=== PATIENT | female | born 1975 | race Two or more races ===

== ENCOUNTER 2021-07-31 12:11 | Emergency (ER) | payer MEDICAID, SELFPAY ==
--- NOTE | 2021-07-31 | ECG_ITS ---
Test Reason : palpitations Blood Pressure : / mmHG Vent. Rate : 066 BPM Atrial Rate : 066 BPM P-R Int : 168 ms QRS Dur : 086 ms QT Int : 408 ms P-R-T Axes : 020 011 008 degrees QTc Int : 427 ms Normal sinus rhythm Normal ECG No previous ECGs available Referred By: Generic ED Physician Electronically Signed By:LISA DESOUZA MD
--- NOTE | ~2021-07-31 | XR_ITS ---
EXAMINATION: XR CHEST CLINICAL INFORMATION: Palpitations COMPARISON: Chest radiographs 09/07/2019, 01/24/2018 TECHNIQUE: Portable upright AP view of the chest was obtained. FINDINGS: The lungs are clear. There is no airspace consolidation, vascular congestion, pneumothorax, or effusion. The vascularity is normal. The heart is normal in size. The hilar and mediastinal contours are normal. There is dextrocurvature thoracic spine similar to prior exam 2019. There is artifact overlying the supraclavicular soft tissues likely clothing artifact. XR/XR chest 1V IMPRESSION: Unremarkable examination.
[2021-07-31 12:26] VITALS: BP 117/79; PULSE 69; RESP 18; TEMP 36.9; O2SAT 100; BMI 38.9
--- NOTE | 2021-07-31 13:08 | ED_ITS ---
HPI - Arrhythmia/Palpitations General Chief Complaint: Arrhythmia/Palpitations Stated Complaint: rapid heartbeat Time Seen by Provider: 07/31/21 12:54 Source: patient Mode of arrival: ambulatory Limitations: no limitations History of Present Illness HPI narrative: Patient comes emergency room complaining palpitations. Patient states that she drank a large coffee with a lot of sugar in it, then she started having palpitations. Patient states that she has history of panic attacks and before she had worsening anxiety due to the palpitations she decided to come to the emergency room. This time, she is not tachycardic, has no palpitations and has no anxiety. Related Data Allergies Allergy/AdvReac Type Severity Reaction Status Date / Time ketorolac [From TORADOL] Allergy Mild ITCHING Unverified 07/04/20 19:02 Review of Systems Review of Systems: Constitutional : No Weight loss, No Fever, No Chills, No Night Sweats, No Fatigue, No Malaise ENT/Mouth : No Hearing loss, No Ear Pain, No Nasal Congestion, No Sinus Pain, No Hoarseness, No sore throat, No Rhinorrhea, No Swallowing Difficulty Eyes: No Eye Pain, No Swelling, No Redness, No Foreign Body, No Discharge, No Vision Changes Cardiovascular : No Chest Pain, No SOB, No Dyspnea on Exertion, No Orthopnea, No Edema, complaining of Palpitations that self-resolved Respiratory : No Cough, No Sputum, No Wheezing, No Smoke Exposure, No Dyspnea Gastrointestinal : No Nausea, No Vomiting, No Diarrhea, No Constipation, No abdominal Pain, No Hematochezia, No Melena Genitourinary : no irregular bleeding, No Dysuria, No Urinary Frequency, No Hematuria, No Urinary Incontinence, No Urgency, No Flank Pain, No Urinary Flow Changes, No Hesitancy Musculoskeletal : No joint pain, No Myalgias, No Joint Swelling Skin : No Skin Lesions, No rash Neuro : No Weakness, No Numbness, No Paresthesias, No Loss of Consciousness, No Dizziness, No Headache Psych : Complaining of Anxiety/Panic, No Depression, No SI/HI/AH/VH, No Social Issues, Heme/Lymph: No Bruising, No Bleeding,No Lymphadenopathy Endocrine : No Polyuria, No Polydipsia, No Temperature Intolerance [facility] Social History Social History Alcohol intake: unknown Patient Tobacco Use Status: Tobacco use Unknown Use of substances other than those prescribed or required for medical reasons: No Advance Directives: No Advance Directives Information Provided: Yes Physical Exam Vital Signs: Vital Signs: Last Vital Signs Temp 98.4 F 07/31/21 12:26 Pulse 64 07/31/21 14:03 Resp 15 07/31/21 14:03 BP 110/70 07/31/21 14:03 Pulse Ox 99 07/31/21 14:03 Body Mass Index 38.9 Const: Other: Appearance: Alert. Oriented X3. No acute distress. Eyes: Pupils equal, round and reactive to light. ENT: Pharynx normal. Neck: Normal inspection. Neck supple. No lymph nodes noted. No crepitus CVS: Normal heart rate and rhythm. Pulses normal. Normal S1 and S2 Respiratory: No respiratory distress. Breath sounds normal. No Wheezing. No rales Abdomen: Soft and nontender. No rigidity. No distention. good BS x4 Skin: Skin warm and dry. Normal skin color. Normal skin turgor. Extremities: No lower extremity edema. No Lacerations. No Rash Neuro: Oriented X 3. No motor deficit. No sensory deficit. Moving all extermities. No slurred speech. Course Course Course Narrative: Patient's palpitations likely secondary to caffeine/anxiety Patient remains asymptomatic MDM - Arrhythmia/Palpitations Lab Data Result diagrams: 07/31/21 13:04 07/31/21 13:42 Labs: Lab Results 07/31/21 07/31/21 07/31/21 Range/Units 13:04 13:05 13:42 WBC 3.7 L (4.8-10.8) X10*3/uL RBC 4.37 (4.20-5.50) X10*6/uL Hgb 13.4 (12.0-16.0) g/dl Hct 40.0 (37-47) % MCV 91.5 (80-98) fL MCH 30.7 (27.0-33.0) pg MCHC 33.5 (31.0-35.0) g/dl RDW 11.8 (11.0-16.0) % Plt Count 314 (160-400) X10*3/uL MPV 10.4 (9.4-12.3) fL Immature Gran % (Auto) 0.3 (0.0-0.4) % Neut % (Auto) 42.0 L (45-73) % Lymph % (Auto) 46.1 H (20-40) % [place] % (Auto) 9.2 (2-11) % Eos % (Auto) 1.6 (0-4) % Baso % (Auto) 0.8 (0-2) % Lymph # (Auto) 1.7 (1.2-4.9) X10*3/uL [place] # (Auto) 0.3 (0.1-1.2) X10*3/uL Eos # (Auto) 0.1 (0.0-0.4) X10*3/uL Baso # (Auto) 0.0 (0.0-0.2) X10*3/uL Abs Immat Gran (auto) 0.01 (0.00-0.03) X10*3/uL Absolute Neuts (auto) 1.6 L (2.0-8.3) X10*3/uL Absolute Nucleated RBC 0.000 (0.0-0.012) X10*3/uL Nucleated RBC % (auto) 0.0 (0.0-0.2) /100WBC Sodium 138 (135-145) mmol/L Potassium 4.7 (3.3-5.1) mmol/L Chloride 106 (96-108) mmol/L Carbon Dioxide 28 (22-29) mmol/L Anion Gap 9 L (12-20) BUN 8 L (9-16) mg/dL Creatinine 0.83 (0.5-1.4) mg/dL Estim Creat Clear Calc 92.8 Estimated GFR > 60 Random Glucose 93 (60-115) mg/dL Calcium 9.4 (8.4-10.2) mg/dL Troponin I High Sens < 3.5 (<3.5-17.0) ng/L ECG Data Attestation: I personally reviewed and interpreted this ECG as follows: (Rate 66, no ST segment depression or elevation, nonspecific T-wave inversion in lead 3, QTC 427) Discharge Plan Discharge Clinical Impression: Palpitations, Anxiety Patient Disposition: Home, Self-Care Instructions: Heart Palpitations (ED) Additional Instructions: Please follow-up with your primary care physician tomorrow. If you have any worsening or new symptoms, please return to the emergency room or call 911
[2021-07-31 13:11] LABS: MANUAL DIFF FLAG NO
[2021-07-31 13:12] LABS: Basophils Percent Auto 0.8 % (0-2); Eosinophils Absolute Auto 0.1 X10*3/uL (0.0-0.4); Eosinophils Percent Auto 1.6 % (0-4); Hemoglobin 13.4 g/dl (12.0-16.0); Imm Gran Abs Auto 0.01 X10*3/uL (0.00-0.03); Imm Gran Pct Auto 0.3 % (0.0-0.4); Lymphocytes Absolute Auto 1.7 X10*3/uL (1.2-4.9); Lymphocytes Percent Auto 46.1 % (20-40); Mean Corpuscular HGB Conc 33.5 g/dl (31.0-35.0); Mean Corpuscular Hemoglobin 30.7 pg (27.0-33.0); Mean Corpuscular Volume 91.5 fL (80-98); Mean Platelet Volume 10.4 fL (9.4-12.3); Monocytes Absolute Auto 0.3 X10*3/uL (0.1-1.2); Monocytes Percent Auto 9.2 % (2-11); Neutrophils Absolute Auto 1.6 X10*3/uL (2.0-8.3); Platelet Count 314 X10*3/uL (160-400); Red Blood Count 4.37 X10*6/uL (4.20-5.50); Red Cell Distribution Width 11.8 % (11.0-16.0); White Blood Count 3.7 X10*3/uL (4.8-10.8)
[2021-07-31 13:27] VITALS: PULSE 64
[2021-07-31 13:32] LABS: Troponin-I High Sensitivity < 3.5 ng/L (<3.5-17.0)
[2021-07-31 14:03] VITALS: BP 110/70; PULSE 64; RESP 15; O2SAT 99
[2021-07-31 14:15] LABS: Anion Gap 9 (12-20); Blood Urea Nitrogen 8 mg/dL (9-16); Calcium 9.4 mg/dL (8.4-10.2); Carbon Dioxide 28 mmol/L (22-29); Chloride 106 mmol/L (96-108); Creatinine Clr Calc Pharmacy 92.8; Estimated Glomerular Filt Rate > 60; Glucose Random 93 mg/dL (60-115); Potassium 4.7 mmol/L (3.3-5.1); Sodium 138 mmol/L (135-145)
== END 2021-07-31 15:08 | disposition home or self-care (01) ==
PROVIDERS: Emergency Provider Emergency Medicine; PCP Internal Medicine
DX: R00.2 Palpitations (principal); F41.9 Anxiety disorder, unspecified
CPT/HCPCS: 36415; 71045; 80048; 84484; 85025; 93005; 96361; 96374; 99284; 99285

== ENCOUNTER 2021-09-25 02:31 | Emergency (ER) | payer MEDICAID, SELFPAY ==
[2021-09-25 02:33] VITALS: BP 126/72; PULSE 69; RESP 16; TEMP 36.6; O2SAT 97; BMI 33.3
--- NOTE | 2021-09-25 02:56 | ED.GENADULT ---
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 Patient denies any lifting or traumatic injury that preceded the symptoms, but states that she is now having discomfort at the anterior chest wall at the same dermatomal level. She denies any associated cough, sore throat, shortness of breath, chest pain/palpitations, GI symptoms, urinary pain/burning/frequency. Related Data Previous Rx's Medication Instructions Recorded cyclobenzaprine 5 mg tablet 5 mg PO BEDTIME PRN #4 tab 09/25/21 Allergies Allergy/AdvReac Type Severity Reaction Status Date / Time ketorolac [From TORADOL] Allergy Mild ITCHING Unverified 07/04/20 19:02 Review of Systems Review of Systems: Pertinent positives and negatives as stated in HPI 10 point review of systems is otherwise negative. [facility] Past Medical History Source: nursing notes reviewed Social History Social History Alcohol intake: unknown Patient Tobacco Use Status: Tobacco use Unknown Advance Directives: No Advance Directives Information Provided: Yes Physical Exam Vital Signs: Vital Signs: Last Vital Signs Temp 97.8 F 09/25/21 02:33 Pulse 69 09/25/21 02:33 Resp 16 09/25/21 02:33 BP 126/72 09/25/21 02:33 Pulse Ox 97 09/25/21 02:33 BMI result Body Mass Index 33.3 VITAL SIGNS: Reviewed. GENERAL: Well developed, well nourished, in no acute distress. HEAD: Normocephalic/atraumatic EYES: PERRLA, EOMI OROPHARYNX: no oral lesions noted, posterior pharynx clear LUNGS: Normal breath sounds. No adventitious sounds or accessory muscle use. SpO2<97> CARDIOVASCULAR: Regular rate and rhythm without noted murmur ABDOMEN: Soft, non-tender, non-distended with bowel sounds, no CVA tenderness BACK: There is no midline vertebral tenderness, however there is some left paraspinal tenderness on palpation at the approximate T11/T12 level NEUROLOGIC: Alert and oriented x 4. Strength and sensation to light touch were grossly intact x 4. Course Course Course Narrative: 46-year-old female with history and clinical presentation with low clinical suspicion for any cardiopulmonary etiology, no infectious etiology suspected and findings most consistent with acute on chronic musculoskeletal pain. Patient will receive combination analgesics, UA, chest x-ray. Patient is status post cholecystectomy. On re-evaluation patient is noted to be resting comfortably and on questioning has had significant improvement of her pain and is requesting to go home. She was provided with a regimen and instructed to follow up with the primary care provider. Discharge Plan Discharge Clinical Impression: Back pain, Muscle spasm Patient Disposition: Home, Self-Care Instructions: Back Pain (ED), Muscle Spasm (ED) Additional Instructions: 1. Tylenol 1000 mg, por v?a oral, cada 6 horas seg?n sea necesario para controlar el dolor. No exceda los 4000 mg en 24 horas. 2. Parche de lidoca?na, est? disponible sin receta y debe aplicarse en el ?alanna de m?xima sensibilidad rosy se indica en el empaque exterior. 3. Tera un seguimiento con grant proveedor de atenci?n primaria los pr?ximos 2 a 3 d?as para grover reevaluaci?n. Regrese a la paula de emergencias si los s?ntomas empeoran. Prescriptions: New cyclobenzaprine 5 mg tablet 5 mg PO BEDTIME PRN (Reason: muscle spasm) Qty: 4 RF: 0 Referrals: [facility] [Primary Care Provider] - 2 days Print Language: Danish
[2021-09-25] MEDS: Lidocaine 4 % Patch ADH..PATCH 1 PATCH TRANSDERMA (03:40)
[2021-09-25] MEDS: Cyclobenzaprine HCl 5 MG TABLET PO (03:40)
[2021-09-25] MEDS: Acetaminophen 325 MG TABLET 975 MG PO (03:40)
== END 2021-09-25 05:12 | disposition home or self-care (01) ==
PROVIDERS: Emergency Provider Student in an Organized Health Care Education/Training Program
DX: M54.6 Pain in thoracic spine (principal); M62.830 Muscle spasm of back
CPT/HCPCS: 99283

== ENCOUNTER 2022-04-28 09:53 | Emergency (ER) | payer OTHER, MEDICAID, SELFPAY ==
[2022-04-28 09:56] VITALS: BP 121/56; PULSE 61; RESP 19; TEMP 36.6; O2SAT 99; BMI 32.1
--- NOTE | 2022-04-28 12:13 | ED_ITS ---
HPI - General Adult General Chief complaint: Back Pain/Injury Stated complaint: Back Neck Pain Work Injury Time Seen by Provider: 04/28/22 11:49 Source: patient Mode of arrival: ambulatory History of Present Illness HPI narrative: 47-year-old female with no significant past medical history presenting to the ED complaining of right upper back/neck pain S/P helping lift heavy patient at work 4 days ago. 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 Reports pain with palpation, and right-sided neck movement/right arm movement. Denies direct trauma/injury or fall, numbness, tingling, weakness, headache, dizziness vision changes, weakness Onset (ago): day(s) Related Data Previous Rx's Medication Instructions Recorded cyclobenzaprine 5 mg tablet 5 mg PO BEDTIME PRN muscle spasm 09/25/21 #4 tabs Allergies Allergy/AdvReac Type Severity Reaction Status Date / Time ketorolac [From TORADOL] Allergy Mild ITCHING Unverified 07/04/20 19:02 Review of Systems Review of Systems: Constitutional:No Fever, No Chills, No Night Sweats, No Fatigue, No Malaise ENT/Mouth: No Ear Pain, No Nasal Congestion, No sore throat, No Rhinorrhea, No Swallowing Difficulty Eyes: No Eye Pain, No Swelling, No Redness, No Foreign Body, No Discharge, No Vision Changes Cardiovascular: No Chest Pain, No SOB, No Palpitations Respiratory: No Cough, No Sputum, NNo Dyspnea Gastrointestinal: No Nausea, No Vomiting, No Diarrhea, No Constipation, No Abdominal pain Genitourinary: No Dysuria, No Urinary Frequency, No Hematuria, No Urinary Incontinence/retention Musculoskeletal: + joint pain, No Myalgias, No Joint Swelling Skin: No Skin Lesions, No rash Neuro: No Weakness, No Numbness, No Paresthesias, No Dizziness, No Headache Yes all other systems are reviewed and are negative [facility] Past Medical History Attestation statement: The following information was validated with the patient. Social History Social History Alcohol intake: unknown Patient Tobacco Use Status: Tobacco use Unknown Advance Directives: No Advance Directives Information Provided: No Physical Exam ED Vital Signs: Vital Signs - 24 hr 04/28/22 09:56 Temperature 98 F Pulse Rate 61 Respiratory Rate 19 Blood Pressure 121/56 L Pulse Oximetry 99 Oxygen Delivery Method Room Air BMI result Body Mass Index 32.1 Const General: cooperative, healthy appearing and no acute distress Orientation/consciousness: patient oriented x3 Limitations: no limitations HENMT Head: Yes normal to inspection and Yes atraumatic Ears: hearing grossly normal bilaterally, external ears normal and mastoids normal General nose exam: Normal external nose present Face and sinus: Yes normal facial exam Eyes General: appearance normal, both eyes and all related structures EOM: EOMs intact bilaterally Neck Other: + right paraspinal tenderness to palpation and right trapezius muscle tenderness to palpation reproducing subjective complaint. No ecchymosis/erythema or crepitus. Limited neck rightward motion secondary to pain Neck: Yes normal visual inspection, Yes no meningeal signs and No anterior neck swelling Resp Effort & Inspection: normal respiratory effort and no respiratory distress Cardio Rate: regular rate Heart sounds: S1 normal heart sound present and S2 normal heart sound present Peripheral pulses: radial pulses present GI Inspection: Yes normal to inspection Back/Spine/Pelvis Other: No midline thoracic/lumbar spinous tenderness/step-off or deformity Skin Rashes: no rashes Wounds: no wounds Neuro General: patient oriented x3, gait normal, tone normal, moves all extremities, no meningeal signs, no focal motor deficits and CN's II-XI intact bilaterally Gait exam (Neuro): Normal gait present Motor exam (neuro): 5/5 motor strength present throughout Extrem General: Yes normal to inspection Medical Decision Making MDM Narrative Medical decision making narrative: 47-year-old female with no significant past medical history presenting to the ED complaining of right upper back/neck pain S/P helping lift heavy patient at work 4 days ago. On exam signs stable, NAD, nontoxic appearing, physical exam as above, no midline spinous tenderness throughout, no focal neuro deficits. Pain reproducible on exam. Concern for MSK pain/strain/spasm. Low concern for fx or CVT or dissection Plan: pain management Medical Records Medical records reviewed: Yes I reviewed the patient's medical records. Lab Data Lab results reviewed: Yes I reviewed the patient's lab results. Discharge Plan Discharge Clinical Impression: Trapezius muscle strain, Neck pain Patient Disposition: Home, Self-Care Instructions: Acute Neck Pain (ED) Additional Instructions: Your pain is likely musculoskeletal Flexeril is a muscle relaxer, take at night as it makes you drowsy, do not drive, drink alcohol, or operate machinery while taking it Lidoderm patches are numbing patches, apply to painful area In addition take Tylenol at home If symptoms persist or worsen, pain becomes unbearable, you developed urinary retention or incontinence, or weakness return to the ED Prescriptions: No Action cyclobenzaprine 5 mg tablet 5 mg PO BEDTIME PRN (Reason: muscle spasm) Qty: 4 0RF Referrals: [facility] [Primary Care Provider] - 3 days Stand Alone Forms: Work/School Release Print Language: Setswana
[2022-04-28] MEDS: Acetaminophen 325 MG TABLET 650 MG PO (12:49)
[2022-04-28] MEDS: Lidocaine 4 % Patch ADH..PATCH 1 PATCH TRANSDERMA (12:50)
== END 2022-04-28 13:00 | disposition home or self-care (01) ==
PROVIDERS: Emergency Provider Emergency Medicine
DX: M54.50 Low back pain, unspecified (principal); M54.2 Cervicalgia; Z79.899 Other long term (current) drug therapy
CPT/HCPCS: 99283

== ENCOUNTER 2022-07-07 09:48 | Emergency (ER) | payer MEDICAID, SELFPAY ==
--- NOTE | ~2022-07-07 | XR_ITS ---
EXAMINATION: XR HAND, LEFT CLINICAL INFORMATION: Left hand pain. COMPARISON: None TECHNIQUE: PA, lateral, and oblique views of the left hand. An indicator arrow points to the second digit. FINDINGS: The bones and soft tissues are normal. No fracture. Alignment is anatomic. Joint spaces are maintained. No erosions or soft tissue calcifications. XR/XR hand LT min 3V IMPRESSION: Unremarkable left hand.
[2022-07-07 09:53] VITALS: BP 129/75; PULSE 68; RESP 16; TEMP 36.1; O2SAT 98; BMI 30.9
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
== END 2022-07-07 12:18 | disposition home or self-care (01) ==
PROVIDERS: Emergency Provider Emergency Medicine
DX: S06.0X0A Concussion without loss of consciousness, initial encounter (principal); S60.222A Contusion of left hand, initial encounter; M79.642 Pain in left hand; V43.52XA Car driver injured in collision with other type car in traffic accident, initial encounter; Y93.9 Activity, unspecified; Y92.410 Unspecified street and highway as the place of occurrence of the external cause; Y99.9 Unspecified external cause status; Z79.899 Other long term (current) drug therapy
CPT/HCPCS: 73130; 99283

== ENCOUNTER 2022-11-05 21:28 | Emergency (ER) | payer MEDICAID, SELFPAY ==
[2022-11-05 21:32] VITALS: BP 141/86; PULSE 107; RESP 18; TEMP 38; O2SAT 100; BMI 35.4
[2022-11-05 22:00] VITALS: BP 121/76; PULSE 77; RESP 17; TEMP 36.9; O2SAT 96
[2022-11-05] MEDS: Acetaminophen 325 MG TABLET 650 MG PO (22:05)
[2022-11-05 22:50] LABS: Influenza A PCR NEGATIVE (Negative); Influenza B PCR NEGATIVE (Negative); Resp Syncy Virus RNA Qual PCR NEGATIVE (Negative); SARS COV2 PCR INHOUSE NEGATIVE (Negative)
[2022-11-05 23:01] LABS: Appearance Urine Clear; Color Urine Yellow; Glucose Urine UA Negative (Negative); Leukocyte Esterase Urine Negative (Negative); Nitrite Urine Negative (Negative); PH 6.5 (5.0-9.0); Specific Gravity - Urine 1.015 (1.005-1.025); Urine Blood Negative (Negative); Urine Ketones Negative (Negative); Urine Protein Negative (Neg-Trace)
--- NOTE | 2022-11-05 23:13 | ED_ITS ---
HPI - Back Pain/Injury General Chief Complaint: Back Pain/Injury Stated Complaint: Left leg pain Time Seen by Provider: 11/05/22 22:00 Source: patient Mode of arrival: ambulatory History of Present Illness HPI Narrative: 47 year old female with PMHx back injury presents to the ED c/o left low back pain x few days that radiates down her left glute and LLE, worse with movement. Admits to associated tingling. Took Tylenol at home with no relief. Denies trauma, fall or injury, IVDU, weakness, numbness, nausea, vomiting, urinary incontinence/retention, dysuria, hematuria or change in bowel habits. MD elicited complaint: back pain Pertinent past history: prior back pain Onset (ago): day(s) Related Data Previous Rx's Medication Instructions Recorded cyclobenzaprine 5 mg tablet 5 mg PO BEDTIME PRN muscle spasm 09/25/21 #4 tabs acetaminophen 500 mg tablet 500 mg PO Q6H PRN fever or pain 04/28/22 (Tylenol Extra Strength) #14 tabs cyclobenzaprine 5 mg tablet 5 mg PO Q8H PRN pain (scale score 04/28/22 7-10) 5 days #14 tabs lidocaine 5 % topical patch 1 patch topical DAILY PRN pain #30 04/28/22 (Lidoderm) ea acetaminophen 500 mg tablet 500 mg PO Q6H PRN fever or pain 11/05/22 (Tylenol Extra Strength) #14 tabs cyclobenzaprine 5 mg tablet 5 mg PO Q8H PRN pain (scale score 11/05/22 7-10) 5 days #14 tabs lidocaine 5 % topical patch 1 patch topical DAILY PRN pain #30 11/05/22 (Lidoderm) ea naproxen 500 mg tablet 500 mg PO BID PRN pain 10 days #20 11/05/22 tabs Allergies Allergy/AdvReac Type Severity Reaction Status Date / Time morphine Allergy Rash Verified 11/05/22 21:38 Review of Systems Review of Systems: Constitutional: + Fever (noted in triage), No Chills ENT/Mouth: No Ear Pain, No Nasal Congestion, No sore throat, No Rhinorrhea, No Swallowing Difficulty Cardiovascular: No Chest Pain, No SOB Respiratory: No Cough, No Sputum, No Wheezing Gastrointestinal: No Nausea, No Vomiting, No Diarrhea, No Constipation, No Abdominal pain Genitourinary: No Dysuria, No Urinary Frequency, No Hematuria, No Urinary Incontinence/retention, No Urgency, No Flank Pain Musculoskeletal: +joint pain, No Myalgias, No Joint Swelling Skin: No Skin Lesions, No rash Neuro: No Weakness, No Numbness, + Paresthesias Yes all other systems are reviewed and are negative Constitutional: Constitutional: Reports as per HPI Neurologic: Denies Sensory deficit (Neuro) [facility] Past Medical History Attestation statement: The following information was validated with the patient. Social History Social History Alcohol intake: unknown Patient Tobacco Use Status: Tobacco use Unknown Advance Directives: No Advance Directives Information Provided: No Physical Exam Vital Signs: Vital Signs: Last Vital Signs Temp 98.5 F 11/05/22 22:00 Pulse 77 11/05/22 22:00 Resp 17 11/05/22 22:00 BP 121/76 11/05/22 22:00 Pulse Ox 96 11/05/22 22:00 O2 Del Method 11/05/22 21:32 BMI result Body Mass Index 35.4 Const: General: cooperative Orientation/consciousness: patient oriented x3 Limitations: no limitations HEENT: Head: Yes normal to inspection and Yes atraumatic Ears: hearing grossly normal bilaterally General nose exam: Normal external nose present Face and sinus: Yes normal facial exam Eyes: General: appearance normal, both eyes and all related structures EOM: EOMs intact bilaterally Neck: Neck: Yes normal visual inspection and Yes no meningeal signs Resp: Effort & Inspection: normal respiratory effort and no respiratory distress Cardio: Rate: regular rate Peripheral pulses: dorsalis pedis present GI: Inspection: Yes normal to inspection Palpation (GI): Soft to palpation, nontender, no guarding and not rigid : General: Yes no CVA tenderness Back/Spine/Pelvis: Other: No midline thoracic/lumbar spinous tenderness/step-off or deformity. + Left- sided lower lumbar paraspinal and biotic tenderness to palpation reproducing subjective complaint. No erythema/ ecchymosis or crepitus. no rash Back: no CVA tenderness Skin: Rashes: no rashes Wounds: no wounds Neuro: Other: Strength intact throughout. No saddle anesthesia. Sensation intact to light touch. Neurovascular intact distally General: patient oriented x3, gait normal, tone normal, moves all extremities, no meningeal signs, no focal motor deficits and CN's II-XI intact bilaterally Gait exam (Neuro): Normal gait present Motor exam (neuro): 5/5 motor strength present throughout Sensory Exam: No Sensory deficit (Neuro) Extrem: General: Yes normal to inspection Course Course Course Narrative: [id number]-- UA not infected. COVID-19/influenza/ RSV negative - patient ambulating with steady gait after medications. Results discussed with patient including worrisome signs and symptoms and strict return precautions, and when to return to the emergency department. They verbalized understanding and feel safe for discharge at this time. Medications Administered Discontinued Medications Generic Name Dose Route Start Last Admin Trade Name Freq PRN Reason Stop Dose Admin Acetaminophen 650 mg 11/05/22 21:55 11/05/22 22:05 Acetaminophen 325 Mg Tablet PO 11/05/22 21:56 650 mg ONCE ONE Administration Cyclobenzaprine HCl 10 mg 11/05/22 23:09 11/05/22 23:39 Cyclobenzaprine Hcl 10 Mg Tablet PO 11/05/22 23:10 10 mg ONCE ONE Administration Ketorolac Tromethamine 30 mg 11/05/22 23:09 11/05/22 23:39 Ketorolac Tromethamine 30 Mg/Ml Vial IM 11/05/22 23:10 30 mg ONCE ONE Administration Lidocaine 1 patch 11/05/22 23:09 11/05/22 23:39 Lidocaine 4 % Patch Adh..Patch TRANSDERMA 11/05/22 23:10 1 patch ONCE ONE Administration Protocol Medical Decision Making Medical Decision Making [facility] Narrative: 47 year old female with PMHx back injury presents to the ED c/o left low back pain x few days that radiates down her left glute and LLE, worse with movement with associated tingling. On exam low-grade temp 100.4 degrees, tachycardic likely from fever, NAD, nontoxic appearing, no midline spinous tenderness through or red flag symptoms. ambulating with steady gait. No CVA tenderness. Concern for MSK pain/ sciatica. Lower suspicion for renal stone/ pyelo or UTI. Lower suspicion for appendicitis/diverticulitis. ? viral syndrome. Lower suspicion for cauda equina, cord compression or epidural abscess. Plan: COVID-19/influenza/ RSV testing, UA, pain control Please refer to course for remaining clinical decision making, interpretation of labs/imaging results, and discussions with consultants and/or family members. Differential Diagnosis Differential Diagnoses: The differential diagnosis associated with the presentation includes As above Lab Data Labs: Lab Results 11/05/22 11/05/22 Range/Units 22:06 22:48 Urine Color Yellow Urine Appearance Clear Urine pH 6.5 (5.0-9.0) Ur Specific [place] 1.015 (1.005-1.025) Urine Protein Negative (Neg-Trace) mg/dL Urine Glucose (UA) Negative (Negative) mg/dL Urine Ketones Negative (Negative) mg/dL Urine Blood Negative (Negative) Urine Nitrite Negative (Negative) Ur Leukocyte Esterase Negative (Negative) Influenza Type A (PCR) NEGATIVE (Negative) Influenza Type B (PCR) NEGATIVE (Negative) RSV RNA Qual (PCR) NEGATIVE (Negative) SARS-CoV-2 RNA (RT-PCR) NEGATIVE (Negative) Discharge Plan Discharge Clinical Impression: Lumbar radiculopathy Patient Disposition: Home, Self-Care Instructions: Lumbar Radiculopathy (ED) Additional Instructions: your urine was not infected. you tested negative for COVID-19, the flu, and RSV Your pain is likely musculoskeletal Flexeril is a muscle relaxer, take at night as it makes you drowsy, do not drive, drink alcohol, or operate machinery while taking it Naproxen as an anti-inflammatory / pain medication, take with food Lidoderm patches are numbing patches, apply to painful area In addition take Tylenol at home If symptoms persist or worsen, pain becomes unbearable, you developed urinary retention or incontinence, or weakness return to the ED grant orina no estaba infectada. michelle negativo en la prueba de COVID-19, gripe y RSV Es probable que grant dolor sea musculoesquel?poonam Flexeril es un relajante muscular, t?matthew por la noche ya que te adormece, no conduzcas, bebas alcohol ni operes maquinaria mientras lo phong. Naproxeno rosy medicamento antiinflamatorio/analg?sico, t?dunham con alimentos Los parches de Lidoderm son parches anest?sicos, se aplican en el ?alanna dolorida Adem?s addy Tylenol en casa Si los s?ntomas persisten o empeoran, el dolor se vuelve insoportable, desarroll? retenci?n urinaria o incontinencia, o debilidad, regrese al servicio de urgencias. Prescriptions: New acetaminophen [Tylenol Extra Strength] 500 mg tablet 500 mg PO Q6H PRN (Reason: fever or pain) Qty: 14 0RF lidocaine [Lidoderm] 5 % adhesive patch,medicated 1 patch topical DAILY MDD remove after 12 hours PRN (Reason: pain) Qty: 30 0RF Rx Instructions: leave on most painful area for up to 12 hrs naproxen 500 mg tablet 500 mg PO BID PRN (Reason: pain) 10 Days Qty: 20 0RF cyclobenzaprine 5 mg tablet 5 mg PO Q8H PRN (Reason: pain (scale score 7-10)) 5 Days Qty: 14 0RF No Action cyclobenzaprine 5 mg tablet 5 mg PO BEDTIME PRN (Reason: muscle spasm) Qty: 4 0RF acetaminophen [Tylenol Extra Strength] 500 mg tablet 500 mg PO Q6H PRN (Reason: fever or pain) Qty: 14 0RF lidocaine [Lidoderm] 5 % adhesive patch,medicated 1 patch topical DAILY MDD remove after 12 hours PRN (Reason: pain) Qty: 30 0RF Rx Instructions: leave on most painful area for up to 12 hrs cyclobenzaprine 5 mg tablet 5 mg PO Q8H PRN (Reason: pain (scale score 7-10)) 5 Days Qty: 14 0RF Referrals: [facility] [Primary Care Provider] - 3 days Print Language: Latvian
[2022-11-05] MEDS: Lidocaine 4 % Patch ADH..PATCH 1 PATCH TRANSDERMA (23:39)
[2022-11-05] MEDS: Ketorolac Tromethamine 30 MG/ML VIAL IM (23:39)
[2022-11-05] MEDS: Cyclobenzaprine HCl 10 MG TABLET PO (23:39)
== END 2022-11-06 00:19 | disposition home or self-care (01) ==
PROVIDERS: Emergency Provider Internal Medicine
DX: M54.16 Radiculopathy, lumbar region (principal); M79.662 Pain in left lower leg; M54.50 Low back pain, unspecified; Z79.899 Other long term (current) drug therapy; Z20.828 Contact with and (suspected) exposure to other viral communicable diseases; Z20.822 Contact with and (suspected) exposure to COVID-19
CPT/HCPCS: 0241U; 81003; 96372; 99283; 99284; J1885

== ENCOUNTER 2023-07-18 14:15 | Emergency (ER) | payer MEDICAID, SELFPAY ==
--- NOTE | 2023-07-18 14:48 | ED.HA ---
HPI - Headache General Chief Complaint: Upper Respiratory Symptoms Stated Complaint: headaches Time Seen by Provider: 07/18/23 15:15 Source: patient Mode of arrival: ambulatory Limitations: no limitations History of Present Illness HPI Narrative: 48-year-old female previously healthy here with complaints of cough, headache, nasal congestion and diarrhea/vomiting for 2 days. No fevers, chills, difficulty breathing, chest pain, neck pain, neck stiffness, skin rash, abdominal pain, urinary symptoms. Patient did home COVID test which was negative Related Data Previous Rx's Medication Instructions Recorded cyclobenzaprine 5 mg tablet 5 mg PO BEDTIME PRN muscle spasm 09/25/21 #4 tabs acetaminophen 500 mg tablet 500 mg PO Q6H PRN fever or pain 04/28/22 (Tylenol Extra Strength) #14 tabs cyclobenzaprine 5 mg tablet 5 mg PO Q8H PRN pain (scale score 04/28/22 7-10) 5 days #14 tabs lidocaine 5 % topical patch 1 patch topical DAILY PRN pain #30 04/28/22 (Lidoderm) ea acetaminophen 500 mg tablet 500 mg PO Q6H PRN fever or pain 11/05/22 (Tylenol Extra Strength) #14 tabs cyclobenzaprine 5 mg tablet 5 mg PO Q8H PRN pain (scale score 11/05/22 7-10) 5 days #14 tabs lidocaine 5 % topical patch 1 patch topical DAILY PRN pain #30 11/05/22 (Lidoderm) ea naproxen 500 mg tablet 500 mg PO BID PRN pain 10 days #20 11/05/22 tabs ondansetron 4 mg disintegrating 4 mg PO Q6H PRN nausea and 07/18/23 tablet vomiting #15 tabs Allergies Allergy/AdvReac Type Severity Reaction Status Date / Time morphine Allergy Rash Verified 07/18/23 14:52 Review of Systems Review of Systems: Yes all other systems are reviewed and are negative Constitutional: Constitutional: Reports no additional constitutional complaints, Denies body ache(s), Denies chills, Denies fever(s), Reports headache(s) and Denies weakness Eyes: Eyes: Reports no additional eye complaints and Denies change in vision ENT: Reports system reviewed and no additional complaints, except as documented, Denies dizziness, Reports headache(s), Reports nasal congestion, Denies nasal discharge and Denies neck pain Cardiovascular: Cardiovascular: Reports no additional cardiovascular complaints, Denies chest pain, Denies leg edema and Denies dyspnea Respiratory: Respiratory: Reports no additional respiratory complaints, Reports cough and Denies dyspnea Gastrointestinal: Gastrointestinal: Reports no additional gastrointestinal complaints, Denies abdominal pain, Reports diarrhea, Reports nausea and Reports vomiting Genitourinary: Genitourinary: Reports no additional female genitourinary complaints and Denies urinary incontinence Musculoskeletal: Musculoskeletal: Reports no additional musculoskeletal complaints, Denies back pain, Denies arthralgias, Denies joint swelling, Denies neck pain, Denies numbness and Denies tingling Integumentary/Breasts: Skin/Breast: Reports system reviewed and no additional complaints, except as docu and Denies rash Neurologic: Reports system reviewed and no additional complaints, except as documented, Denies Abnormal speech present, Denies dizziness, Reports headache(s), Denies numbness, Denies tingling and Denies weakness PMFSH Past Medical History Attestation statement: The following information was validated with the patient. Source: old records reviewed and nursing notes reviewed Social History Social History Alcohol intake: unknown Patient Tobacco Use Status: Tobacco use Unknown Advance Directives: No Advance Directives Information Provided: No Physical Exam Vital Signs: Vital Signs: Last Vital Signs Temp 98.8 F 07/18/23 14:49 Pulse 74 07/18/23 14:49 Resp 16 07/18/23 14:49 BP 112/68 07/18/23 14:49 Pulse Ox 98 07/18/23 14:49 O2 Del Method Room Air 07/18/23 14:49 BMI result Body Mass Index 33.3 Const: General: cooperative, healthy appearing, comfortable and no acute distress Orientation/consciousness: patient oriented x3 Limitations: no limitations HEENT: Head: Yes normal to inspection Ears: hearing grossly normal bilaterally and TM's normal bilaterally General nose exam: Normal external nose present Face and sinus: Yes normal facial exam Mouth: Normal oral and palatal mucosa present Throat: Yes posterior oropharynx normal, Yes tonsils normal and Yes uvula midline Eyes: General: appearance normal, both eyes and all related structures Pupils: Equal, round and reactive pupils present Neck: Neck: Yes normal visual inspection, Yes full ROM, Yes no lymphadenopathy and Yes no meningeal signs Chest: Chest palpation & inspection: normal inspection of the chest Resp: Effort & Inspection: normal respiratory effort Auscultation: clear to auscultation bilaterally Cardio: Rate: regular rate Rhythm: regular rhythm Peripheral pulses: Peripheral pulses 2+ throughout GI: Inspection: Yes normal to inspection Palpation (GI): Soft to palpation and nontender Auscultation: normal bowel sounds Back/Spine/Pelvis: Thoracic/Lumbar Spine: thoracic and lumbar spine normal to inspection Skin: General skin exam: no rashes or lesions noted Neuro: General: patient oriented x3, no meningeal signs, no focal motor deficits and normal sensation to monofilament Cranial nerves: Yes Equal, round and reactive pupils present Cognition (Neuro): normal cognition Speech: No Abnormal speech present Gait exam (Neuro): Normal gait present Motor exam (neuro): 5/5 motor strength present throughout Extrem: General: Yes normal to inspection Course Course Course Narrative: RME - 48 yo female presenting with coughing, headache, nasal congestion, diarrhea, decreased appetite that started yesterday. No fever or abdominal pain. COVID negative at home. VSS in triage. Plan: viral PCR Reevaluation(s) Reevaluation #1: Testing for flu and COVID are negative. Likely viral syndrome. Patient is tolerating water with no additional vomiting episodes. Recommend supportive care at home. Reviewed worrisome signs and symptoms of when to return to the emergency room. Comfortable plan for discharge home. Medications Administered Discontinued Medications Generic Name Dose Route Start Last Admin Trade Name Freq PRN Reason Stop Dose Admin Ondansetron HCl 4 mg 07/18/23 15:37 07/18/23 15:45 Ondansetron Odt 4 Mg Tab.Rapdis TRANSLINGU 07/18/23 15:38 4 mg ONCE ONE Administration Medical Decision Making Medical Decision Making [facility] Narrative: 48-year-old female previously healthy here with complaints of cough, headache, nasal congestion and diarrhea/vomiting for 2 days. No fevers, chills, difficulty breathing, chest pain, neck pain, neck stiffness, skin rash, abdominal pain, urinary symptoms. Patient did home COVID test which was negative Abdomen soft nontender. Lungs are clear. No meningeal signs or lymphadenopathy. Vitals are stable. Will send testing for flu, COVID, RSV Differential Diagnosis Differential Diagnoses: The differential diagnosis associated with the presentation includes Viral syndrome Low concern for acute abdomen as abdomen is soft nontender Admission/Observation Consideration of admission/observation: Escalation of care including admission/observation considered Patient viral syndrome, tolerating p.o. with no additional vomiting episodes. Can go home orally rehydrate with antiemetic p.r.n.. No need for admission with IV fluids Lab Data MDM Lab Attestation statement: I reviewed the patient's lab results. Testing for flu, COVID, RSV are negative Labs: Lab Results 07/18/23 Range/Units 14:54 Influenza Type A (PCR) NEGATIVE (Negative) Influenza Type B (PCR) NEGATIVE (Negative) RSV RNA Qual (PCR) NEGATIVE (Negative) SARS-CoV-2 RNA (RT-PCR) NEGATIVE (Negative) Tests considered The following testing was considered but not selected: No hypoxia or tachypnea to suggest need for did chest x-ray. No focal abdominal pain to suggest need for labs and CT scan Prescription Management I considered prescription management with: Antibiotic Symptoms less than 48 hours likely secondary to virus, no need for antibiotic Discharge Plan Discharge Clinical Impression: Viral infection Patient Disposition: Home, Self-Care Instructions: Viral Syndrome (ED) Additional Instructions: Testing for flu and COVID are negative Increase fluids at home and rest Return for any worsening symptoms Prescriptions: New ondansetron 4 mg tablet,disintegrating 4 mg PO Q6H PRN (Reason: nausea and vomiting) Qty: 15 0RF No Action acetaminophen [Tylenol Extra Strength] 500 mg tablet 500 mg PO Q6H PRN (Reason: fever or pain) Qty: 14 0RF lidocaine [Lidoderm] 5 % adhesive patch,medicated 1 patch topical DAILY MDD remove after 12 hours PRN (Reason: pain) Qty: 30 0RF Rx Instructions: leave on most painful area for up to 12 hrs naproxen 500 mg tablet 500 mg PO BID PRN (Reason: pain) 10 Days Qty: 20 0RF cyclobenzaprine 5 mg tablet 5 mg PO Q8H PRN (Reason: pain (scale score 7-10)) 5 Days Qty: 14 0RF cyclobenzaprine 5 mg tablet 5 mg PO BEDTIME PRN (Reason: muscle spasm) Qty: 4 0RF acetaminophen [Tylenol Extra Strength] 500 mg tablet 500 mg PO Q6H PRN (Reason: fever or pain) Qty: 14 0RF lidocaine [Lidoderm] 5 % adhesive patch,medicated 1 patch topical DAILY MDD remove after 12 hours PRN (Reason: pain) Qty: 30 0RF Rx Instructions: leave on most painful area for up to 12 hrs cyclobenzaprine 5 mg tablet 5 mg PO Q8H PRN (Reason: pain (scale score 7-10)) 5 Days Qty: 14 0RF Referrals: [place] [Primary Care Provider] - 5 days Stand Alone Forms: Work/School Release
[2023-07-18 14:49] VITALS: BP 112/68; PULSE 74; RESP 16; TEMP 37.1; O2SAT 98; BMI 33.3
[2023-07-18] MEDS: Ondansetron ODT 4 MG TAB.RAPDIS TRANSLINGU (15:45)
[2023-07-18 15:46] LABS: Influenza A PCR NEGATIVE (Negative); Influenza B PCR NEGATIVE (Negative); Resp Syncy Virus RNA Qual PCR NEGATIVE (Negative); SARS COV2 PCR INHOUSE NEGATIVE (Negative)
== END 2023-07-18 16:20 | disposition home or self-care (01) ==
PROVIDERS: Physician Assistant; Emergency Provider Emergency Medicine
DX: B34.9 Viral infection, unspecified (principal); R51.9 Headache, unspecified; R05.9 Cough, unspecified; Z20.822 Contact with and (suspected) exposure to COVID-19; Z20.828 Contact with and (suspected) exposure to other viral communicable diseases; Z79.899 Other long term (current) drug therapy
CPT/HCPCS: 0241U; 99282

== ENCOUNTER 2023-12-30 08:30 | Outpatient (REF) | payer MEDICAID, SELFPAY ==
[2023-12-30 12:04] LABS: Estimated Average Glucose 100 mg/dL; Hemoglobin A1c % 5.1 % (<6.0)
[2023-12-30 12:26] LABS: Alanine Aminotransferase 17 U/L (0-31); Alkaline Phosphatase 63 U/L (39-117); Anion Gap 10 (12-20); Aspartate Amino Transferase 15 U/L (5-31); Blood Urea Nitrogen 16 mg/dL (9-16); Calcium 9.3 mg/dL (8.4-10.2); Carbon Dioxide 27 mmol/L (22-29); Chloride 107 mmol/L (96-108); Cholesterol 171 mg/dL (<200); Estimated Glomerular Filt Rate > 60; Glucose Random 90 mg/dL (60-115); HDL Cholesterol 51 mg/dL (>40); LDL Cholesterol Calculated 107 mg/dL (<100); Potassium 4.3 mmol/L (3.3-5.1); Sodium 140 mmol/L (135-145); Total Protein 7.3 g/dL (6.5-8.0); Triglycerides 67 mg/dL (<150)
[2023-12-30 12:53] LABS: TSH reflex Free T4 0.96 uIU/mL (0.32-4.0); Vitamin D 25-OH Total 30.3 ng/mL (>30)
== END 2023-12-30 08:31 | disposition home or self-care (01) ==
LOC: HO.HHCL 08:30
PROVIDERS: Visit Provider Registered Nurse
DX: E66.01 Morbid (severe) obesity due to excess calories (principal); Z68.41 Body mass index [BMI] 40.0-44.9, adult
CPT/HCPCS: 36415; 80053; 80061; 82306; 83036; 84443

== ENCOUNTER 2024-01-02 12:18 | Emergency (ER) | payer MEDICAID, SELFPAY ==
--- NOTE | ~2024-01-02 | XR_ITS ---
EXAMINATION: XR LUMBOSACRAL SPINE CLINICAL INFORMATION: Reason for Exam left sided pain radiating down leg COMPARISON: None TECHNIQUE: 3 views of the lumbar spine FINDINGS: There are 6 nonrib-bearing lumbar-type vertebral bodies with lumbarization of S1. The last well-formed disc space will be referred to as S1-S2. Vertebral body heights are maintained. Levoconvex curvature of the lumbar spine. Mild multilevel degenerative disc disease with small anterior disc osteophyte complexes. Right upper quadrant cholecystectomy clips. 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 If intervention is being considered recommend total spine radiographs to ensure accurate numbering. * Mild multilevel degenerative disc disease with levoconvex curvature of the lumbar spine.
[2024-01-02 12:24] VITALS: BP 94/62; PULSE 72; RESP 16; TEMP 37.2; O2SAT 97; BMI 40.2
--- NOTE | 2024-01-02 12:24 | ED_ITS ---
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 She states she had some pain to her left low back yesterday however upon bending over to put her pants on today she felt pop to her left low back. Pain is radiating down the side of the left leg to the knee. Moving and ambulating exacerbate her back pain. She did not take any [id number] pain medications prior to coming in today. Denies trauma or injury to the back. Denies history of spinal surgeries. Denies IVDU. Denies numbness/tingling/weakness of the extremity, saddle anesthesia, bowel or bladder incontinence or retention. instructor bridge utilized throughout visit to communicate with patient. Related Data Previous Rx's Medication Instructions Recorded cyclobenzaprine 5 mg tablet 5 mg PO BEDTIME PRN muscle spasm 09/25/21 #4 tabs acetaminophen 500 mg tablet 500 mg PO Q6H PRN fever or pain 04/28/22 (Tylenol Extra Strength) #14 tabs cyclobenzaprine 5 mg tablet 5 mg PO Q8H PRN pain (scale score 04/28/22 7-10) 5 days #14 tabs lidocaine 5 % topical patch 1 patch topical DAILY PRN pain #30 04/28/22 (Lidoderm) ea acetaminophen 500 mg tablet 500 mg PO Q6H PRN fever or pain 11/05/22 (Tylenol Extra Strength) #14 tabs cyclobenzaprine 5 mg tablet 5 mg PO Q8H PRN pain (scale score 11/05/22 7-10) 5 days #14 tabs lidocaine 5 % topical patch 1 patch topical DAILY PRN pain #30 11/05/22 (Lidoderm) ea naproxen 500 mg tablet 500 mg PO BID PRN pain 10 days #20 11/05/22 tabs ondansetron 4 mg disintegrating 4 mg PO Q6H PRN nausea and 07/18/23 tablet vomiting #15 tabs cyclobenzaprine 5 mg tablet 5 mg PO BEDTIME PRN muscle spasm 01/02/24 #7 tabs lidocaine 5 % topical patch 1 patch topical DAILY #15 ea 01/02/24 (Lidoderm) naproxen 500 mg tablet 500 mg PO Q8-12H PRN pain (scale 01/02/24 score 4-6) #14 tabs Allergies Allergy/AdvReac Type Severity Reaction Status Date / Time morphine Allergy Rash Verified 07/18/23 14:52 Review of Systems Review of Systems: Constitutional: No fever, chills, fatigue, night sweats, weight changes ENT/Mouth: No ear pain, hearing loss, nasal congestion, sinus pain, rhinorrhea, sore throat Eyes: No eye pain, swelling, redness, vision changes, discharge Cardio: No chest pain, palpitations, YUN, orthopnea, peripheral edema Pulm: No SOB, cough, sputum, wheezing, dyspnea, hemoptysis GI: No nausea, vomiting, hematemesis, abdominal pain, diarrhea, constipation, hematochezia, melena : No irregular bleeding, dysuria, frequency, urgency, hesitancy, hematuria, flank pain, urinary flow changes, urinary incontinence or retention MSK: +back pain, No neck pain, joint pain, myalgias Skin: No lesions, rashes Neuro: No weakness, numbness, paresthesias, LOC, dizziness, headache All other systems reviewed and are negative. [facility] Past Medical History Attestation statement: The following information was validated with the patient. Source: old records reviewed and nursing notes reviewed Social History Social History Alcohol intake: unknown Patient Tobacco Use Status: Tobacco use Unknown Advance Directives: No Advance Directives Information Provided: No Physical Exam ED Vital Signs: Vital Signs - 24 hr 01/02/24 12:24 01/02/24 15:07 Temperature 98.9 F 97.9 F Pulse Rate 72 60 Respiratory Rate 16 18 Blood Pressure 94/62 111/75 Pulse Oximetry 97 99 Oxygen Delivery Method Room Air Room Air BMI result Body Mass Index 40.2 Const General: cooperative, healthy appearing, comfortable, no acute distress, alert, awake and Physically active Orientation/consciousness: patient oriented x3 HENMT Head: Yes normal to inspection, Yes normocephalic and Yes atraumatic Eyes General: appearance normal, both eyes and all related structures Pupils: Equal, round and reactive pupils present EOM: EOMs intact bilaterally Neck Other: No cervical spinous tenderness or step off deformity Neck: Yes normal visual inspection, Yes full ROM and Yes no meningeal signs Resp Effort & Inspection: normal respiratory effort Auscultation: clear to auscultation bilaterally Cardio Rate: regular rate Rhythm: regular rhythm GI Inspection: Yes normal to inspection Palpation (GI): Soft to palpation and nontender General: Yes no CVA tenderness Back/Spine/Pelvis Other: + left paraspinal muscles tender to palpation. No palpable masses. No midline spinous tenderness or step-off deformity. Ambulating with steady gait. Back: no CVA tenderness Neuro Other: Strength 5/5 intact throughout.?No saddle anesthesia.?Sensation intact to light touch.?Neurovascular intact distally.? General: patient oriented x3, gait normal, tone normal and no meningeal signs Cranial nerves: Yes Equal, round and reactive pupils present Gait exam (Neuro): Normal gait present Deep tendon reflexes (DTR's): Right patellar reflex intensity grade: 2+ and Left patellar reflex intensity grade: 2+ Course Course Course Narrative: This is a rapid medical exam: Additional HPI, ROS, PE not included below will be deferred to primary provider. Patient is a 48-year-old female presenting to the ED with complaint of left lower back pain radiating down leg. Started yesterday and improved with ibuprofen last night. Today felt a pop when she got [place] from [place] the [place]. Denies saddle anesthesia, bowel or bladder incontinence. Plan: lumbar xray Reevaluation(s) Reevaluation #1: 6835-- urine negative for infection, blood, . Unlikely renal colic or nephrolithiasis. No concern for urinary tract infection. 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 As patient is 48 years old and has never had back pain before, this is unlikely the cause of her symptoms. There are also degenerative changes within the spine. Exam is consistent with strain of the paraspinal muscles. Discussed all of these results with patient who verbalizes understanding. Will send her home with Flexeril, lidocaine patch and naproxen. Advised to follow-up with PCP as needed. Patient has remained stable throughout ED visit today. Discussed worrisome signs and symptoms and when to return to the ED. All questions answered at this time. Patient is agreeable with disposition and stable for discharge. Medications Administered Discontinued Medications Generic Name Dose Route Start Last Admin Trade Name Bushra PRN Reason Stop Dose Admin Acetaminophen 975 mg 01/02/24 14:12 01/02/24 14:41 Acetaminophen 325 Mg Tablet PO 01/02/24 14:13 975 mg ONCE ONE Administration Cyclobenzaprine HCl 10 mg 01/02/24 14:12 01/02/24 14:41 Cyclobenzaprine Hcl 10 Mg Tablet PO 01/02/24 14:13 10 mg ONCE ONE Administration Lidocaine 1 patch 01/02/24 14:12 01/02/24 14:41 Lidocaine 4 % Patch Adh..Patch TRANSDERMA 01/02/24 14:13 1 patch ONCE ONE Administration Protocol Medical Decision Making Medical Decision Making [facility] Narrative: 48 year old female with pmhx significant for HDL presents to the ED today for evaluation of left low back pain that began yesterday. Vital signs stable. She is nontoxic-appearing and in no acute distress. On exam, no CVAT bilaterally. There is left-sided lumbar paraspinal muscle tenderness to palpation. No midline tenderness or step-off deformity noted. No palpable masses or warmth. She is ambulating with steady gait. Neurovascularly intact distally. No saddle anesthesia. Strength 5/5 intact. 2+ PT/DP pulses bilaterally. 2+ patellar DTRs bilaterally. Differential diagnosis includes lumbar sprain/strain, fracture, subluxation, disc herniation, sciatica. Unlikely cord compression, cauda equina, Guillain- Drayden, epidural abscess. Plan for imaging, UA, pain control. Differential Diagnosis Differential Diagnoses: The differential diagnosis associated with the presentation includes as above Admission/Observation Not indicated. Lab Data [facility] Lab Attestation statement: I reviewed the patient's lab results. As above Labs: Lab Results 01/02/24 Range/Units 15:28 Urine Color Yellow Urine Appearance Clear Urine pH 6.5 (5.0-9.0) Ur Specific [place] 1.025 (1.005-1.025) Urine Protein Negative (Neg-Trace) mg/dL Urine Glucose (UA) Negative (Negative) mg/dL Urine Ketones Negative (Negative) mg/dL Urine Blood Negative (Negative) Urine Nitrite Negative (Negative) Ur Leukocyte Esterase Trace H (Negative) Urine RBC 0-2 (0-2) /HPF Urine WBC 0-5 (0-5) /HPF Ur Squamous Epith Cells 6-10 (0-2) /HPF Urine Bacteria 3+ (None Seen) Hyaline Casts 0-2 (0-2) /LPF Urine Test NEGATIVE (NEGATIVE) Independent Interpretation I performed an independent interpretation of an: Plain X-Ray Interpretation: I have personally reviewed x-ray and agree with radiologist's interpretation Radiology Impression Discussion of test interpretation with radiology: I have reviewed the radiologist's reading. 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 The last well-formed disc space will be referred to as S1-S2. Vertebral body heights are maintained. Levoconvex curvature of the lumbar spine. Mild multilevel degenerative disc disease with small anterior disc osteophyte complexes. Right upper quadrant cholecystectomy clips. 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 If intervention is being considered recommend total spine radiographs to ensure accurate numbering. * Mild multilevel degenerative disc disease with levoconvex curvature of the lumbar spine. External Record Review External record reviewed: Inpatient record Prescription Management I considered prescription management with: Pain Medication and Other (Muscle relaxer, steroid) Social Determinants Patient?s care significantly limited by Social Determinants of Health including: Other Social Determinant of Health Critical Care Time Critical Care Time Critical Care Time: No Discharge Plan Discharge Clinical Impression: Strain of lumbar region, Lumbarization, vertebra Patient Disposition: Home, Self-Care Instructions: Acute Low Back Pain (ED), Lower Back Exercises (ED) Additional Instructions: Your imaging studies today did not show acute fracture. Your urine is negative for infection and blood. As discussed, the x-ray of your low back shows lumbarization of the vertebrae (6 lumbar vertebrae instead of 5) along with chronic degenerative changes. Avoid bending, lifting, or twisting. Use ice several times per day for 20 minutes at a time for the next 48 hours and then change to heat. Flexeril is a muscle relaxer. Take this at night as it makes you drowsy. Do not drive, drink alcohol, or operate machinery while taking it. Naproxen is an anti-inflammatory / pain medication. Take with food. Do not take this with Ibuprofen. Lidoderm patches are numbing patches. Apply to painful areas. In addition you may take Tylenol at home. Follow up with your primary care provider as needed If your pain worsens, if you develop new numbness, tingling, weakness, loss of bowel or bladder function call 911 or return to the ER immediately for evaluation. Prescriptions: New cyclobenzaprine 5 mg tablet 5 mg PO BEDTIME PRN (Reason: muscle spasm) Qty: 7 0RF lidocaine [Lidoderm] 5 % adhesive patch,medicated 1 patch topical DAILY Qty: 15 0RF Rx Instructions: leave on most painful area for up to 12 hrs naproxen 500 mg tablet 500 mg PO Q8-12H PRN (Reason: pain (scale score 4-6)) Qty: 14 0RF No Action acetaminophen [Tylenol Extra Strength] 500 mg tablet 500 mg PO Q6H PRN (Reason: fever or pain) Qty: 14 0RF lidocaine [Lidoderm] 5 % adhesive patch,medicated 1 patch topical DAILY MDD remove after 12 hours PRN (Reason: pain) Qty: 30 0RF Rx Instructions: leave on most painful area for up to 12 hrs naproxen 500 mg tablet 500 mg PO BID PRN (Reason: pain) 10 Days Qty: 20 0RF cyclobenzaprine 5 mg tablet 5 mg PO Q8H PRN (Reason: pain (scale score 7-10)) 5 Days Qty: 14 0RF cyclobenzaprine 5 mg tablet 5 mg PO BEDTIME PRN (Reason: muscle spasm) Qty: 4 0RF acetaminophen [Tylenol Extra Strength] 500 mg tablet 500 mg PO Q6H PRN (Reason: fever or pain) Qty: 14 0RF lidocaine [Lidoderm] 5 % adhesive patch,medicated 1 patch topical DAILY MDD remove after 12 hours PRN (Reason: pain) Qty: 30 0RF Rx Instructions: leave on most painful area for up to 12 hrs cyclobenzaprine 5 mg tablet 5 mg PO Q8H PRN (Reason: pain (scale score 7-10)) 5 Days Qty: 14 0RF ondansetron 4 mg tablet,disintegrating 4 mg PO Q6H PRN (Reason: nausea and vomiting) Qty: 15 0RF Referrals: [facility] [Provider Group] [facility]] [facility] [[facility]] Stand Alone Forms: Work/School Release
[2024-01-02] MEDS: Acetaminophen 325 MG TABLET 975 MG PO (14:41)
[2024-01-02] MEDS: Cyclobenzaprine HCl 10 MG TABLET PO (14:41)
[2024-01-02] MEDS: Lidocaine 4 % Patch ADH..PATCH 1 PATCH TRANSDERMA (14:41)
[2024-01-02 15:07] VITALS: BP 111/75; PULSE 60; RESP 18; TEMP 36.6; O2SAT 99
[2024-01-02 15:42] LABS: Appearance Urine Clear; Color Urine Yellow; Glucose Urine UA Negative (Negative); Leukocyte Esterase Urine Trace (Negative); Nitrite Urine Negative (Negative); PH 6.5 (5.0-9.0); Specific Gravity - Urine 1.025 (1.005-1.025); UMIC TRIGGER UACC YES; Urine Blood Negative (Negative); Urine Ketones Negative (Negative); Urine Protein Negative (Neg-Trace)
[2024-01-02 15:44] LABS: UPreg QC Valid YES; Urine Pregnancy NEGATIVE (NEGATIVE)
[2024-01-02 15:45] LABS: Bacteria Urine 3+ (None Seen); Hyaline Casts Urine 0-2 /LPF (0-2); RBC Urine 0-2 /HPF (0-2); WBC Urine 0-5 /HPF (0-5)
[2024-01-02 16:17] VITALS: BP 150/78; PULSE 60; RESP 18; TEMP 36.6; O2SAT 100
== END 2024-01-02 16:29 | disposition home or self-care (01) ==
PROVIDERS: Physician Assistant Medical; Emergency Provider Emergency Medicine
DX: S39.012A Strain of muscle, fascia and tendon of lower back, initial encounter (principal); Q76.49 Other congenital malformations of spine, not associated with scoliosis; X58.XXXA Exposure to other specified factors, initial encounter; Y93.9 Activity, unspecified; Y92.9 Unspecified place or not applicable; Y99.9 Unspecified external cause status
CPT/HCPCS: 72100; 81001; 81025; 99283; 99284

== ENCOUNTER 2024-03-22 00:45 | Emergency (ER) | payer MEDICAID, SELFPAY ==
--- NOTE | 2024-03-22 | ECG_ITS ---
Test Reason : CHEST PAIN Blood Pressure : / mmHG Vent. Rate : 063 BPM Atrial Rate : 063 BPM P-R Int : 174 ms QRS Dur : 084 ms QT Int : 420 ms P-R-T Axes : 080 046 048 degrees QTc Int : 429 ms Sinus rhythm with occasional Premature ventricular complexes Otherwise normal ECG When compared with ECG of 31-JUL-2021 12:38, Premature ventricular complexes are now Present T wave inversion no longer evident in Inferior leads T wave amplitude has increased in Anterior leads Referred By: Generic ED Physician Electronically Signed By:
--- NOTE | ~2024-03-22 | XR_ITS ---
EXAMINATION: XR CHEST CLINICAL INFORMATION: Chest pain with cough COMPARISON: 07/31/2021 TECHNIQUE: Frontal view of the chest was obtained. FINDINGS: The lungs are clear with no focal consolidation. No evidence of pneumothorax, pulmonary edema, or pleural effusions. The cardiomediastinal silhouette is unremarkable. No acute osseous findings. XR/XR chest 1V IMPRESSION: No acute cardiopulmonary findings.
[2024-03-22 00:50] VITALS: BP 123/79; PULSE 63; RESP 16; TEMP 36.9; O2SAT 98; BMI 44.1
[2024-03-22 01:09] LABS: Basophils Percent Auto 0.4 % (0-2); Eosinophils Absolute Auto 0.1 X10*3/uL (0.0-0.4); Hematocrit 36.2 % (37.0-47.0); Hemoglobin 12.3 g/dl (12.0-16.0); Lymphocytes Percent Auto 43.7 % (20-40); MANUAL DIFF FLAG NO; Mean Corpuscular Volume 91.2 fL (80.0-98.0); Mean Platelet Volume 10.1 fL (9.4-12.3); Monocytes Absolute Auto 0.5 X10*3/uL (0.1-1.2); Monocytes Percent Auto 9.9 % (2-11); Platelet Count 252 X10*3/uL (160-400); Red Blood Count 3.97 X10*6/uL (4.20-5.50); Red Cell Distribution Width 12.2 % (11.0-16.0); White Blood Count 4.6 X10*3/uL (4.8-10.8)
[2024-03-22 01:26] LABS: Anion Gap 12 (12-20); Blood Urea Nitrogen 15 mg/dL (9-16); Calcium 9.7 mg/dL (8.4-10.2); Carbon Dioxide 23 mmol/L (22-29); Chloride 109 mmol/L (96-108); Creatinine Clr Calc Pharmacy 95.5; Estimated Glomerular Filt Rate > 60; Glucose Random 100 mg/dL (60-115); Potassium 3.9 mmol/L (3.3-5.1); Sodium 140 mmol/L (135-145)
[2024-03-22 01:38] LABS: Troponin-I High Sensitivity < 2.7 ng/L (<3.5-17.0)
[2024-03-22 01:50] LABS: Influenza A PCR NEGATIVE (Negative); Influenza B PCR NEGATIVE (Negative); Resp Syncy Virus RNA Qual PCR NEGATIVE (Negative); SARS COV2 PCR INHOUSE NEGATIVE (Negative)
[2024-03-22 02:50] VITALS: BP 136/63; PULSE 68; RESP 20; TEMP 36.7; O2SAT 98
--- NOTE | 2024-03-22 02:50 | ED_ITS ---
HPI - Chest Pain General Chief Complaint: Chest Pain Stated Complaint: chest pain Time Seen by Provider: 03/22/24 02:36 Source: patient Mode of arrival: ambulatory Limitations: no limitations History of Present Illness ED Provider: Dr. Kelli Medina HPI narrative: Patient comes to the emergency room complaining of right-sided sharp sided chest pain that has lasted for a few seconds and self-resolved. Patient states that she has had a lot of stress in the last few days, good stress, a lot of reservations. Patient states that this time she is asymptomatic. Patient states that she wanted to get checked out just in case. At this time, no chest pain or shortness of breath. No abdominal pain. Patient denies coughing, no fever or chills. Related Data Previous Rx's ?Medication ?Instructions ?Recorded cyclobenzaprine 5 mg tablet 5 mg PO BEDTIME PRN muscle spasm 09/25/21 #4 tabs acetaminophen 500 mg tablet 500 mg PO Q6H PRN fever or pain 04/28/22 (Tylenol Extra Strength) #14 tabs cyclobenzaprine 5 mg tablet 5 mg PO Q8H PRN pain (scale score 04/28/22 7-10) 5 days #14 tabs lidocaine 5 % topical patch 1 patch topical DAILY PRN pain #30 04/28/22 (Lidoderm) ea acetaminophen 500 mg tablet 500 mg PO Q6H PRN fever or pain 11/05/22 (Tylenol Extra Strength) #14 tabs cyclobenzaprine 5 mg tablet 5 mg PO Q8H PRN pain (scale score 11/05/22 7-10) 5 days #14 tabs lidocaine 5 % topical patch 1 patch topical DAILY PRN pain #30 11/05/22 (Lidoderm) ea naproxen 500 mg tablet 500 mg PO BID PRN pain 10 days #20 11/05/22 tabs ondansetron 4 mg disintegrating 4 mg PO Q6H PRN nausea and 07/18/23 tablet vomiting #15 tabs cyclobenzaprine 5 mg tablet 5 mg PO BEDTIME PRN muscle spasm 01/02/24 #7 tabs lidocaine 5 % topical patch 1 patch topical DAILY #15 ea 01/02/24 (Lidoderm) naproxen 500 mg tablet 500 mg PO Q8-12H PRN pain (scale 01/02/24 score 4-6) #14 tabs Allergies Allergy/AdvReac Type Severity Reaction Status Date / Time morphine Allergy Rash Verified 03/22/24 00:52 Review of Systems 2 Review of Systems: Constitutional : No Weight loss, No Fever, No Chills, No Night Sweats, No Fatigue, No Malaise ENT/Mouth : No Hearing loss, No Ear Pain, No Nasal Congestion, No Sinus Pain, No Hoarseness, No sore throat, No Rhinorrhea, No Swallowing Difficulty Eyes: No Eye Pain, No Swelling, No Redness, No Foreign Body, No Discharge, No Vision Changes Cardiovascular : Sharp chest pain on the right, No SOB, No Dyspnea on Exertion, No Orthopnea, No Edema, No Palpitations Respiratory : No Cough, No Sputum, No Wheezing, No Smoke Exposure, No Dyspnea Gastrointestinal : No Nausea, No Vomiting, No Diarrhea, No Constipation, No abdominal Pain, No Hematochezia, No Melena Genitourinary : no irregular bleeding, No Dysuria, No Urinary Frequency, No Hematuria, No Urinary Incontinence, No Urgency, No Flank Pain, No Urinary Flow Changes, No Hesitancy Musculoskeletal : No joint pain, No Myalgias, No Joint Swelling Skin : No Skin Lesions, No rash Neuro : No Weakness, No Numbness, No Paresthesias, No Loss of Consciousness, No Dizziness, No Headache Psych : No Anxiety/Panic, No Depression, No SI/HI/AH/VH, No Social Issues, Heme/Lymph: No Bruising, No Bleeding,No Lymphadenopathy Endocrine : No Polyuria, No Polydipsia, No Temperature Intolerance PMFSH Past Medical History Attestation statement: The following information was validated with the patient. Social History Social History Alcohol intake: unknown Patient Tobacco Use Status: Tobacco use Unknown Advance Directives: No Advance Directives Information Provided: Yes Do you have a plan to hurt others: No Plan Physical Exam 2 Vital Signs: Vital Signs: Last Vital Signs Temp 98.0 F 03/22/24 02:50 Pulse 68 03/22/24 02:50 Resp 20 03/22/24 02:50 BP 136/63 03/22/24 02:50 Pulse Ox 98 03/22/24 02:50 O2 Del Method Room Air 03/22/24 02:50 BMI result Body Mass Index 44.1 Const: Other: Appearance: Alert. Oriented X3. No acute distress. Eyes: Pupils equal, round and reactive to light. ENT: Pharynx normal. Neck: Normal inspection. Neck supple. No lymph nodes noted. No crepitus CVS: Normal heart rate and rhythm. Pulses normal. Normal S1 and S2 Respiratory: No respiratory distress. Breath sounds normal. No Wheezing. No rales Abdomen: Soft and nontender. No rigidity. No distention. Skin: Skin warm and dry. Normal skin color. Normal skin turgor. Extremities: No lower extremity edema. No Lacerations. No Rash Neuro: Oriented X 3. No motor deficit. No sensory deficit. Moving all extremities. No slurred speech. CN 2 through 12 grossly intact Psych: calm, cooperative, normal affect Medical Decision Making Medical Decision Making MDM Narrative: -my interpretation of labs, hematology and chemistry at baseline, troponin negative, COVID and RSV/flu negative. -my interpretation of EKG: Normal sinus rhythm, heart rate 61, no ST segment depression or elevation, nonspecific T-wave inversion , QTC 422 -my interpretation of chest x-ray, no infiltrates, no pleural effusions -blood pressure 123/79, pulse 63, respirations 16, oxygen saturation 98% -was criteria score for pulmonary embolism is negative Differential Diagnosis Differential Diagnoses: The differential diagnosis associated with the presentation includes (Anxiety, costochondritis, pleurisy, ACS) Admission/Observation Consideration of admission/observation: Escalation of care including admission/observation considered Lab Data [facility] Lab Attestation statement: I reviewed the patient's lab results. 03/22/24 01:03 03/22/24 01:03 Labs: Lab Results 03/22/24 03/22/24 Range/Units 01:03 01:10 WBC 4.6 L (4.8-10.8) X10*3/uL RBC 3.97 L (4.20-5.50) X10*6/uL Hgb 12.3 (12.0-16.0) g/dl Hct 36.2 L (37.0-47.0) % MCV 91.2 (80.0-98.0) fL MCH 31.0 (27.0-33.0) pg MCHC 34.0 (31.0-35.0) g/dl RDW 12.2 (11.0-16.0) % Plt Count 252 (160-400) X10*3/uL MPV 10.1 (9.4-12.3) fL Immature Gran % (Auto) 0.0 (0.0-0.4) % Neut % (Auto) 44.0 L (45-73) % Lymph % (Auto) 43.7 H (20-40) % Dale % (Auto) 9.9 (2-11) % Eos % (Auto) 2.0 (0-4) % Baso % (Auto) 0.4 (0-2) % Lymph # (Auto) 2.0 (1.2-4.9) X10*3/uL Dale # (Auto) 0.5 (0.1-1.2) X10*3/uL Eos # (Auto) 0.1 (0.0-0.4) X10*3/uL Baso # (Auto) 0.0 (0.0-0.2) X10*3/uL Abs Immat Gran (auto) 0.00 (0.00-0.03) X10*3/uL Absolute Neuts (auto) 2.0 (2.0-8.3) x10*3/uL Absolute Nucleated RBC 0.000 (0.0-0.012) X10*3/uL Nucleated RBC % (auto) 0.0 (0.0-0.2) /100WBC Sodium 140 (135-145) mmol/L Potassium 3.9 (3.3-5.1) mmol/L Chloride 109 H (96-108) mmol/L Carbon Dioxide 23 (22-29) mmol/L Anion Gap 12 (12-20) BUN 15 (9-16) mg/dL Creatinine 0.84 (0.5-1.4) mg/dL Estim Creat Clear Calc 95.5 Estimated GFR > 60 Random Glucose 100 (60-115) mg/dL Calcium 9.7 (8.4-10.2) mg/dL Troponin I High Sens < 2.7 (<3.5-17.0) ng/L Influenza Type A (PCR) NEGATIVE (Negative) Influenza Type B (PCR) NEGATIVE (Negative) RSV RNA Qual (PCR) NEGATIVE (Negative) SARS-CoV-2 RNA (RT-PCR) NEGATIVE (Negative) Independent Interpretation I performed an independent interpretation of an: Plain X-Ray Radiology Impression Discussion of test interpretation with radiology: I have reviewed the radiologist's reading. Radiologist Impression: FINDINGS: The lungs are clear with no focal consolidation. No evidence of pneumothorax, pulmonary edema, or pleural effusions. The cardiomediastinal silhouette is unremarkable. No acute osseous findings. XR/XR chest 1V IMPRESSION: No acute cardiopulmonary findings Discharge Plan Discharge Clinical Impression: Atypical chest pain Patient Disposition: Home, Self-Care Instructions: Chest Pain (ED) Additional Instructions: Please follow-up with your primary care physician tomorrow. If you have any worsening or new symptoms, please return to the emergency room or call 911 Prescriptions: No Action acetaminophen [Tylenol Extra Strength] 500 mg tablet 500 mg PO Q6H PRN (Reason: fever or pain) Qty: 14 0RF lidocaine [Lidoderm] 5 % adhesive patch,medicated 1 patch topical DAILY MDD remove after 12 hours PRN (Reason: pain) Qty: 30 0RF Rx Instructions: leave on most painful area for up to 12 hrs naproxen 500 mg tablet 500 mg PO BID PRN (Reason: pain) 10 Days Qty: 20 0RF cyclobenzaprine 5 mg tablet 5 mg PO Q8H PRN (Reason: pain (scale score 7-10)) 5 Days Qty: 14 0RF cyclobenzaprine 5 mg tablet 5 mg PO BEDTIME PRN (Reason: muscle spasm) Qty: 4 0RF acetaminophen [Tylenol Extra Strength] 500 mg tablet 500 mg PO Q6H PRN (Reason: fever or pain) Qty: 14 0RF lidocaine [Lidoderm] 5 % adhesive patch,medicated 1 patch topical DAILY MDD remove after 12 hours PRN (Reason: pain) Qty: 30 0RF Rx Instructions: leave on most painful area for up to 12 hrs cyclobenzaprine 5 mg tablet 5 mg PO Q8H PRN (Reason: pain (scale score 7-10)) 5 Days Qty: 14 0RF ondansetron 4 mg tablet,disintegrating 4 mg PO Q6H PRN (Reason: nausea and vomiting) Qty: 15 0RF cyclobenzaprine 5 mg tablet 5 mg PO BEDTIME PRN (Reason: muscle spasm) Qty: 7 0RF lidocaine [Lidoderm] 5 % adhesive patch,medicated 1 patch topical DAILY Qty: 15 0RF Rx Instructions: leave on most painful area for up to 12 hrs naproxen 500 mg tablet 500 mg PO Q8-12H PRN (Reason: pain (scale score 4-6)) Qty: 14 0RF Print Language: Frisian
[2024-03-22 05:12] VITALS: BP 127/63; PULSE 64; RESP 16; TEMP 36.8; O2SAT 98
[2024-03-22 05:14] VITALS: BP 127/63; PULSE 64; RESP 16; TEMP 36.8; O2SAT 98
== END 2024-03-22 05:15 | disposition home or self-care (01) ==
PROVIDERS: Emergency Provider Emergency Medicine
DX: R07.89 Other chest pain (principal); R05.9 Cough, unspecified; Z79.899 Other long term (current) drug therapy; Z03.818 Encounter for observation for suspected exposure to other biological agents ruled out
CPT/HCPCS: 0241U; 36415; 71045; 80048; 84484; 85025; 93005; 99283; 99285

== ENCOUNTER 2024-03-26 03:29 | Emergency (ER) | payer MEDICAID, SELFPAY ==
[2024-03-26 03:30] VITALS: BP 137/72; PULSE 103; RESP 18; TEMP 36.8; O2SAT 99; BMI 42.6
[2024-03-26 04:30] VITALS: BP 171/115; PULSE 99; RESP 20; TEMP 36.7; O2SAT 98
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
--- NOTE | 2024-03-26 04:54 | PC.NURSE ---
Irrigated eyes with milk per MD. Patient reports improvement in pain.
[2024-03-26] MEDS: Ibuprofen 400 MG TABLET PO (04:57)
--- NOTE | 2024-03-26 04:59 | PC.NURSE ---
bilateral knee abrasions cleansed with normal saline, non-adherent gauze applied.
--- NOTE | 2024-03-26 05:08 | PC.NURSE ---
Patient MD renan aware.
== END 2024-03-26 05:31 | disposition left against medical advice (07) ==
PROVIDERS: Emergency Provider Emergency Medicine Emergency Medical Services
DX: T65.891A Toxic effect of other specified substances, accidental (unintentional), initial encounter (principal); R58 Hemorrhage, not elsewhere classified; S09.90XA Unspecified injury of head, initial encounter; S16.1XXA Strain of muscle, fascia and tendon at neck level, initial encounter; S80.212A Abrasion, left knee, initial encounter; S80.211A Abrasion, right knee, initial encounter; Y04.2XXA Assault by strike against or bumped into by another person, initial encounter; Y93.9 Activity, unspecified; Y99.9 Unspecified external cause status; Y92.9 Unspecified place or not applicable
CPT/HCPCS: 99283; 99284

== ENCOUNTER 2024-06-06 10:59 | Emergency (ER) | payer MEDICAID, SELFPAY ==
[2024-06-06 11:17] VITALS: BP 131/99; PULSE 72; RESP 16; TEMP 37; O2SAT 99; BMI 42.3
--- NOTE | 2024-06-06 11:21 | ED.GENADULT ---
HPI - General Adult General Chief complaint: Neck Pain/Injury Stated complaint: Neck pain Time Seen by Provider: 06/06/24 11:21 Source: patient, RN notes reviewed and old records reviewed Mode of arrival: ambulatory Limitations: no limitations History of Present Illness ED Provider: Bi HPI narrative: 49-year-old female presents for evaluation of right-sided neck pain. Patient reports waking up with pain in the right side of her neck that radiates right shoulder this morning. She is uncertain if she slept at awkward angle. 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 Patient denies any specific injury Related Data Previous Rx's ?Medication ?Instructions ?Recorded cyclobenzaprine 5 mg tablet 5 mg PO BEDTIME PRN muscle spasm 09/25/21 #4 tabs acetaminophen 500 mg tablet 500 mg PO Q6H PRN fever or pain 04/28/22 (Tylenol Extra Strength) #14 tabs cyclobenzaprine 5 mg tablet 5 mg PO Q8H PRN pain (scale score 04/28/22 7-10) 5 days #14 tabs lidocaine 5 % topical patch 1 patch topical DAILY PRN pain #30 04/28/22 (Lidoderm) ea acetaminophen 500 mg tablet 500 mg PO Q6H PRN fever or pain 11/05/22 (Tylenol Extra Strength) #14 tabs cyclobenzaprine 5 mg tablet 5 mg PO Q8H PRN pain (scale score 11/05/22 7-10) 5 days #14 tabs lidocaine 5 % topical patch 1 patch topical DAILY PRN pain #30 11/05/22 (Lidoderm) ea naproxen 500 mg tablet 500 mg PO BID PRN pain 10 days #20 11/05/22 tabs ondansetron 4 mg disintegrating 4 mg PO Q6H PRN nausea and 07/18/23 tablet vomiting #15 tabs cyclobenzaprine 5 mg tablet 5 mg PO BEDTIME PRN muscle spasm 01/02/24 #7 tabs lidocaine 5 % topical patch 1 patch topical DAILY #15 ea 01/02/24 (Lidoderm) naproxen 500 mg tablet 500 mg PO Q8-12H PRN pain (scale 01/02/24 score 4-6) #14 tabs cyclobenzaprine 10 mg tablet 10 mg PO TID PRN muscle spasm #20 06/06/24 tabs Allergies Allergy/AdvReac Type Severity Reaction Status Date / Time No Known Allergies Allergy Verified 06/06/24 11:21 Review of Systems Constitutional: Constitutional: Denies body ache(s), Denies chills, Denies fever(s) and Denies headache(s) ENT: Denies headache(s), Reports neck pain and Denies sore throat Cardiovascular: Cardiovascular: Denies chest pain and Denies dyspnea Respiratory: Respiratory: Denies cough and Denies dyspnea Gastrointestinal: Gastrointestinal: Denies abdominal pain, Denies nausea and Denies vomiting Musculoskeletal: Musculoskeletal: Denies back pain, Reports arthralgias, Reports neck pain and Reports stiffness Integumentary/Breasts: Skin/Breast: Denies rash Neurologic: Denies headache(s) [facility] Social History Social History Alcohol intake: unknown Patient Tobacco Use Status: Tobacco use Unknown Advance Directives: No Advance Directives Information Provided: No Physical Exam ED Vital Signs: Vital Signs - 24 hr 06/06/24 11:17 Temperature 98.6 F Pulse Rate 72 Respiratory Rate 16 Blood Pressure 131/99 H Pulse Oximetry 99 Oxygen Delivery Method Room Air BMI result Body Mass Index 42.3 Const General: healthy appearing, comfortable, no acute distress, alert and awake Nutritional Appearance: well nourished Orientation/consciousness: patient oriented x3 HENMT Head: Yes normocephalic and Yes atraumatic Throat: Yes posterior oropharynx normal Eyes Eyelids: Yes eyelids normal Conjunctivae: conjunctivae normal Sclerae: sclerae normal Corneas: corneas normal Pupils: Equal, round and reactive pupils present EOM: EOMs intact bilaterally Neck Other: Right cervical paraspinous muscle tenderness. Right trapezius muscle tenderness. No step-offs or deformities. No C-spine tenderness. Neck: Yes full ROM Resp Effort & Inspection: normal respiratory effort, able to speak in complete sentences and not labored Skin General skin exam: elasticity normal Neuro General: patient oriented x3 Cranial nerves: Yes Equal, round and reactive pupils present and Yes Bilaterally intact EOM present Cognition (Neuro): normal cognition Extrem Other: Moving all extremities well without any obvious deformities Medical Decision Making Medical Decision Making MDM Narrative: 41-year-old healthy female presents for evaluation of right-sided neck pain. Pain is worse with movement, reproducible on exam. No warning signs spinal cord injury. She has no fever or headache to suggest infectious cause of pain. Will treat symptomatically with cyclobenzaprine Which she has been on in the past. Differential Diagnosis Differential Diagnoses: The differential diagnosis associated with the presentation includes Cervical strain Muscle spasm Cervical radiculopathy Neck pain Spasmodic torticollis Tests considered The following testing was considered but not selected: C-spine x-ray, shoulder x-ray Discharge Plan Discharge Clinical Impression: Cervical strain, acute Patient Disposition: Home, Self-Care Instructions: Cervical Strain (ED) Additional Instructions: You may continue to use ibuprofen/Tylenol as needed for pain. Use cyclobenzaprine as needed for muscle spasms. This may make you sleepy, did not drink alcohol or drive after taking it You may also use [id number] lidocaine patches Follow-up with your primary doctor, return for new or worsening symptoms Prescriptions: New cyclobenzaprine 10 mg tablet 10 mg PO TID PRN (Reason: muscle spasm) Qty: 20 0RF No Action acetaminophen [Tylenol Extra Strength] 500 mg tablet 500 mg PO Q6H PRN (Reason: fever or pain) Qty: 14 0RF lidocaine [Lidoderm] 5 % adhesive patch,medicated 1 patch topical DAILY MDD remove after 12 hours PRN (Reason: pain) Qty: 30 0RF Rx Instructions: leave on most painful area for up to 12 hrs naproxen 500 mg tablet 500 mg PO BID PRN (Reason: pain) 10 Days Qty: 20 0RF cyclobenzaprine 5 mg tablet 5 mg PO Q8H PRN (Reason: pain (scale score 7-10)) 5 Days Qty: 14 0RF cyclobenzaprine 5 mg tablet 5 mg PO BEDTIME PRN (Reason: muscle spasm) Qty: 4 0RF acetaminophen [Tylenol Extra Strength] 500 mg tablet 500 mg PO Q6H PRN (Reason: fever or pain) Qty: 14 0RF lidocaine [Lidoderm] 5 % adhesive patch,medicated 1 patch topical DAILY MDD remove after 12 hours PRN (Reason: pain) Qty: 30 0RF Rx Instructions: leave on most painful area for up to 12 hrs cyclobenzaprine 5 mg tablet 5 mg PO Q8H PRN (Reason: pain (scale score 7-10)) 5 Days Qty: 14 0RF ondansetron 4 mg tablet,disintegrating 4 mg PO Q6H PRN (Reason: nausea and vomiting) Qty: 15 0RF cyclobenzaprine 5 mg tablet 5 mg PO BEDTIME PRN (Reason: muscle spasm) Qty: 7 0RF lidocaine [Lidoderm] 5 % adhesive patch,medicated 1 patch topical DAILY Qty: 15 0RF Rx Instructions: leave on most painful area for up to 12 hrs naproxen 500 mg tablet 500 mg PO Q8-12H PRN (Reason: pain (scale score 4-6)) Qty: 14 0RF Stand Alone Forms: Work/School Release Print Language: Ivorian
== END 2024-06-06 11:32 | disposition home or self-care (01) ==
LOC: HO.ED 11:26
PROVIDERS: Emergency Provider Emergency Medicine
DX: S16.1XXA Strain of muscle, fascia and tendon at neck level, initial encounter (principal); X58.XXXA Exposure to other specified factors, initial encounter; Y93.89 Activity, other specified; Y92.89 Other specified places as the place of occurrence of the external cause; Y99.8 Other external cause status
CPT/HCPCS: 99281; 99283

== ENCOUNTER 2024-08-03 08:10 | Emergency (ER) | payer MEDICAID, SELFPAY ==
--- NOTE | ~2024-08-03 | XR_ITS ---
EXAMINATION: XR FINGER, RIGHT CLINICAL INFORMATION: Middle finger pain COMPARISON: None available. TECHNIQUE: Three views of the right third finger. FINDINGS: The bones and soft tissues are normal. No fracture. Alignment is anatomic. Joint spaces are maintained. XR/XR finger RT min 2V IMPRESSION: Unremarkable radiographs of the third finger. Electronically signed by: Fernando Longoria MD 08/03/2024 08:56 AM EDT
[2024-08-03 08:30] VITALS: BP 111/75; PULSE 65; RESP 16; TEMP 36.4; O2SAT 99; BMI 36.2
--- NOTE | 2024-08-03 09:20 | ED_ITS ---
HPI - Extremity Problem General Chief complaint: Extremity Injury, Upper Stated complaint: Finer pain Time Seen by Provider: 08/03/24 09:03 Source: patient Mode of arrival: ambulatory Limitations: no limitations History of Present Illness ED Provider: EMMANUEL VALLADARES PA-C HPI Narrative: 49 year old female with no significant pmhx presents to the ED today for evaluation of right 3rd finger pain x1 month, worsening over the last 2 weeks. Reports noticing a small bump on her finger joint. Pain is worse on waking in the morning and with movement of the finger. No pain radiation up her extremity. Trialing Tylenol and Motrin at home which provides temporary relief of pain. No history of similar. No known personal or familial history of rheumatologic conditions. Denies injury or trauma to the finger. Related Data Previous Rx's ?Medication ?Instructions ?Recorded cyclobenzaprine 5 mg tablet 5 mg PO BEDTIME PRN muscle spasm 09/25/21 #4 tabs acetaminophen 500 mg tablet 500 mg PO Q6H PRN fever or pain 04/28/22 (Tylenol Extra Strength) #14 tabs cyclobenzaprine 5 mg tablet 5 mg PO Q8H PRN pain (scale score 04/28/22 7-10) 5 days #14 tabs lidocaine 5 % topical patch 1 patch topical DAILY PRN pain #30 04/28/22 (Lidoderm) ea acetaminophen 500 mg tablet 500 mg PO Q6H PRN fever or pain 11/05/22 (Tylenol Extra Strength) #14 tabs cyclobenzaprine 5 mg tablet 5 mg PO Q8H PRN pain (scale score 11/05/22 7-10) 5 days #14 tabs lidocaine 5 % topical patch 1 patch topical DAILY PRN pain #30 11/05/22 (Lidoderm) ea naproxen 500 mg tablet 500 mg PO BID PRN pain 10 days #20 11/05/22 tabs ondansetron 4 mg disintegrating 4 mg PO Q6H PRN nausea and 07/18/23 tablet vomiting #15 tabs cyclobenzaprine 5 mg tablet 5 mg PO BEDTIME PRN muscle spasm 01/02/24 #7 tabs lidocaine 5 % topical patch 1 patch topical DAILY #15 ea 01/02/24 (Lidoderm) naproxen 500 mg tablet 500 mg PO Q8-12H PRN pain (scale 01/02/24 score 4-6) #14 tabs cyclobenzaprine 10 mg tablet 10 mg PO TID PRN muscle spasm #20 06/06/24 tabs naproxen 500 mg tablet 500 mg PO Q8H PRN pain (scale 08/03/24 score 4-6) #20 tabs Allergies Allergy/AdvReac Type Severity Reaction Status Date / Time No Known Allergies Allergy Verified 08/03/24 08:31 Review of Systems Review of Systems: Constitutional: No fever, chills, fatigue, night sweats, weight changes ENT/Mouth: No ear pain, hearing loss, nasal congestion, sinus pain, rhinorrhea, sore throat Eyes: No eye pain, swelling, redness, vision changes, discharge Cardio: No chest pain, palpitations, YUN, orthopnea, peripheral edema Pulm: No SOB, cough, sputum, wheezing, dyspnea, hemoptysis GI: No nausea, vomiting, hematemesis, abdominal pain, diarrhea, constipation, hematochezia, melena : No irregular bleeding, dysuria, frequency, urgency, hesitancy, hematuria, flank pain, urinary flow changes, urinary incontinence or retention MSK: No back pain, neck pain, joint pain, myalgias, +right 3rd finger pain Skin: No lesions, rashes Neuro: No weakness, numbness, paresthesias, LOC, dizziness, headache Psych: No anxiety/panic, depression, SI/HI, AH/VH All other systems reviewed and are negative. [facility], [facility] Past Medical History Attestation statement: The following information was validated with the patient. Source: old records reviewed and nursing notes reviewed Social History Social History Alcohol intake: unknown Patient Tobacco Use Status: Tobacco use Unknown Advance Directives: No Do you have a plan to hurt others: No Plan Physical Exam Vital Signs: Vital Signs: Last Vital Signs Temp 97.6 F 08/03/24 08:30 Pulse 65 08/03/24 08:30 Resp 16 08/03/24 08:30 BP 111/75 08/03/24 08:30 Pulse Ox 99 08/03/24 08:30 O2 Del Method Room Air 08/03/24 08:30 BMI result Body Mass Index 36.2 Vital signs stable General: Well appearing, in no acute distress. Skin: Warm, dry, intact. No rashes or lesions. Head: Normocephalic, atraumatic. EENT: Hearing is intact b/l. Conjunctiva clear. Sclera is anicteric. PERRLA. Moist mucous membranes.? Cardiac: Chest wall symmetric. RRR Lungs: Normal respiratory effort without accessory muscle use. CTA bilaterally Back: No midline spinous or paraspinal tenderness. No step off deformity. Ext: +right 3rd digit with small mass noted to palmar aspect of PIP joint that is ttp without fluctuance. FROM intact to MCP/PIP/DIP of right 3rd digit with minimal pain elicit on flexion. strength intact. finger to thumb opposition intact. 2+ radial and ulnar pulse intact. Neuro: AOx3. Normal speech. Ambulating with steady gait. Psych: Appropriate mood and affect. Responds appropriately to questions. Course Course Course Narrative: 944 -- xrays do not reveal bony abnormality. plan to treat symptomatically with ortho/ general surgery follow up. patient treated with toradol in ED, naproxen sent to pharmacy. Patient has remained stable throughout ED visit today. Discussed worrisome signs and symptoms and when to return to the ED. All questions answered at this time. Patient is agreeable with disposition and stable for discharge. Medical Decision Making Medical Decision Making MDM Narrative: 49 year old female with no significant pmhx presents to the ED today for evaluation of right 3rd finger pain x1 month, worsening over the last 2 weeks. Vital signs stable. Afebrile. She is nontoxic-appearing and in no acute distress. On exam, right 3rd digit with small mass noted to palmar aspect of PIP joint that is ttp without fluctuance. FROM intact to MCP/PIP/DIP of right 3rd digit with minimal pain elicit on flexion. strength intact. finger to thumb opposition intact. 2+ radial and ulnar pulse intact. Differential diagnosis includes ganglion cyst vs rheumatologic condition (RA vs OA). Low suspicion for fracture, dislocation. Exam findings are not suspicious for ligament or tendon injury, neurovascular compromise, abscess, osteomyelitis. Xrays obtained prior to my assumption of care. Plan for image review, pain control, and re-evaluation. Differential Diagnosis Differential Diagnoses: The differential diagnosis associated with the presentation includes as above. Admission/Observation not indicated. Independent Interpretation I performed an independent interpretation of an: Plain X-Ray Interpretation: xr right 3rd digit without bony abnormality, agree with radiologist's interpretation. Radiology Impression Discussion of test interpretation with radiology: I have reviewed the radiologist's reading. Radiologist Impression: EXAMINATION: XR FINGER, RIGHT CLINICAL INFORMATION: Middle finger pain COMPARISON: None available. TECHNIQUE: Three views of the right third finger. FINDINGS: The bones and soft tissues are normal. No fracture. Alignment is anatomic. Joint spaces are maintained. XR/XR finger RT min 2V IMPRESSION: Unremarkable radiographs of the third finger. Electronically signed by: Fernando Longoria MD 08/03/2024 08:56 AM EDT External Record Review External record reviewed: Inpatient record Prescription Management I considered prescription management with: Pain Medication (naproxen) Social Determinants Patient?s care significantly limited by Social Determinants of Health including: Other Social Determinant of Health Critical Care Time Critical Care Time Critical Care Time: No Discharge Plan Discharge Clinical Impression: Finger pain, right Patient Disposition: Home, Self-Care Instructions: Arthralgia (ED) Additional Instructions: You were evaluated in the ED today for finger pain/ bump. Your xrays are normal and do not demonstrate any bony abnormality. You likely have a cyst surrounding the finger joint. Naproxen is an anti-inflammatory pain medication that has been sent to your pharmacy for you to take every 12 hours as needed for pain/discomfort. Do not take this with other NSAIDs such as ibuprofen or Aleve as this may increase risk of GI bleed. You have also been provided with a referral to an permit specialist as well as a general surgeon. Please call them to establish care. They will not call you. Follow up with PCP as needed. Return with any new or worsening symptoms. In the case of an emergency call 911. Prescriptions: New naproxen 500 mg tablet 500 mg PO Q8H PRN (Reason: pain (scale score 4-6)) Qty: 20 0RF No Action acetaminophen [Tylenol Extra Strength] 500 mg tablet 500 mg PO Q6H PRN (Reason: fever or pain) Qty: 14 0RF lidocaine [Lidoderm] 5 % adhesive patch,medicated 1 patch topical DAILY MDD remove after 12 hours PRN (Reason: pain) Qty: 30 0RF Rx Instructions: leave on most painful area for up to 12 hrs naproxen 500 mg tablet 500 mg PO BID PRN (Reason: pain) 10 Days Qty: 20 0RF cyclobenzaprine 5 mg tablet 5 mg PO Q8H PRN (Reason: pain (scale score 7-10)) 5 Days Qty: 14 0RF cyclobenzaprine 5 mg tablet 5 mg PO BEDTIME PRN (Reason: muscle spasm) Qty: 4 0RF acetaminophen [Tylenol Extra Strength] 500 mg tablet 500 mg PO Q6H PRN (Reason: fever or pain) Qty: 14 0RF lidocaine [Lidoderm] 5 % adhesive patch,medicated 1 patch topical DAILY MDD remove after 12 hours PRN (Reason: pain) Qty: 30 0RF Rx Instructions: leave on most painful area for up to 12 hrs cyclobenzaprine 5 mg tablet 5 mg PO Q8H PRN (Reason: pain (scale score 7-10)) 5 Days Qty: 14 0RF ondansetron 4 mg tablet,disintegrating 4 mg PO Q6H PRN (Reason: nausea and vomiting) Qty: 15 0RF cyclobenzaprine 5 mg tablet 5 mg PO BEDTIME PRN (Reason: muscle spasm) Qty: 7 0RF lidocaine [Lidoderm] 5 % adhesive patch,medicated 1 patch topical DAILY Qty: 15 0RF Rx Instructions: leave on most painful area for up to 12 hrs naproxen 500 mg tablet 500 mg PO Q8-12H PRN (Reason: pain (scale score 4-6)) Qty: 14 0RF cyclobenzaprine 10 mg tablet 10 mg PO TID PRN (Reason: muscle spasm) Qty: 20 0RF Referrals: [facility] [Provider Group] Marcelina Ramirez MD [Primary Care Provider] - Eliana Rodriguez MD [Physician] - Print Language: Kinyarwanda
[2024-08-03] MEDS: Ketorolac Tromethamine 30 MG/ML VIAL IM (09:48)
[2024-08-03 09:54] VITALS: BP 111/75; PULSE 65; RESP 16; TEMP 36.4; O2SAT 99
== END 2024-08-03 09:54 | disposition home or self-care (01) ==
PROVIDERS: Emergency Provider Emergency Medicine; PCP Internal Medicine
DX: M79.644 Pain in right finger(s) (principal); Z79.899 Other long term (current) drug therapy
CPT/HCPCS: 73140; 96372; 99283; 99284; J1885

== ENCOUNTER 2024-09-05 09:15 | Outpatient (AMB) | payer MEDICAID, SELFPAY ==
[2024-09-05 09:16] VITALS: BMI 31.6
--- NOTE | 2024-09-05 09:16 | A.OFFVIS_ITS ---
Vital Signs 09/05/24 09:16 Height 5 ft 5 in Weight 190 lb BMI 31.6 Handedness Right Intake Visit Reasons: [employer]- ED f/u Right MF pain, no known injury Intake Note: Maranda is a 49 year old right hand dominant female who presents today as a new patient for an emergency department follow up of her right middle finger pain that has been going on for approximately two months. She reports this last month her right middle finger has progressively worsened. She states her middle finger of the right hand has pain, numbness and tingling. She expresses pain and difficulty with lifting objects. Reports dropping things in the past from her symptoms. She states she is unable to make a full fist without pain and without her middle finger locking. Her right hand occasionally cramps on her and she finds some relief with running it under hot water. Denies past medical treatment to her right hand. Tylenol and naproxen no longer offers her relief. 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 The patient states that her finger frequently gets caught in a flexed position and she has to manually release the finger with the other hand in order to get extend it again. Patient states that she has not done anything for treatment of this so far. No numbness or tingling in the right hand. No other acute complaints or concerns at this time. [facility] Social History Alcohol intake: unknown Patient Tobacco Use Status: Tobacco use Unknown Review of Systems Const All systems reviewed & are unremarkable except as noted in HPI and below Physical Exam Vital Signs: BMI result Body Mass Index 31.6 Extrem Other: Patient is alert, oriented, and in no acute distress. Neuro: Normal sensation of the tips of all digits of the right hand at this time Vascular: Cap refill brisk Pain: Patient reports tenderness to palpation of the A1 malinda of the right middle finger Patient also reports pain with locking and catching of the right middle finger ROM: There is visible and palpable locking and catching of the right middle finger No other locking or catching noted Skin: No lacerations or abrasions. General: No ecchymosis, erythema, or evidence of infection. Psych: Appears grossly normal Affect normal Attitude cooperative Office Procedures AMB Tendon Injection Tendon Injection 12590-[id number] Tendon Sheath Injection All charges added?: Procedure code (CPT) selection complete Assessment & Plan Assessment & Plan (1) Trigger finger, right middle finger: Code(s): M65.331 - Trigger finger, right middle finger Category: Medical Plan 1. Right middle finger trigger finger I discussed this condition with the patient and the treatment options available Patient would like to proceed with steroid injection The risks and benefits of a steroid injection including but not limited to risk of damage to blood vessels, nerves, tendons, infection, skin bleaching, failure to improve symptoms, increased pain, and possible need for further injections or other intervention were discussed with the patient and the patient wishes to proceed with the steroid injection. Once consent was obtained, I aseptically prepped the area over the A1 malinda of the flexor tendon sheath of the right middle finger. I then injected the flexor tendon sheath with a combination of 1 mL of dexamethasone (4mg/ml), and 1% lidocaine. The patient tolerated the procedure well with no complications. If the patient continues to have locking and catching 4-6 weeks following this injection, they may call to schedule appointment to discuss alternative treatment options Follow-up prn Medications: Discontinued cyclobenzaprine Discontinued Reason: Patient no longer taking 5 mg PO BEDTIME PRN 4 tabs 0RF muscle spasm cyclobenzaprine Discontinued Reason: Patient no longer taking 5 mg PO Q8H 5 days PRN 14 tabs 0RF pain (scale score 7-10) cyclobenzaprine Discontinued Reason: Patient no longer taking 5 mg PO Q8H 5 days PRN 14 tabs 0RF pain (scale score 7-10) lidocaine 5% (Lidoderm) leave on most painful area for up to 12 hrs Discontinued Reason: Duplicate 1 patch topical DAILY PRN 30 ea 0RF pain MDD remove after 12 hours acetaminophen (Tylenol Extra Strength) Discontinued Reason: Duplicate 500 mg PO Q6H PRN 14 tabs 0RF fever or pain lidocaine 5% (Lidoderm) leave on most painful area for up to 12 hrs Discontinued Reason: Duplicate 1 patch topical DAILY PRN 30 ea 0RF pain MDD remove after 12 hours ondansetron Discontinued Reason: Patient Completed Course 4 mg PO Q6H PRN 15 tabs 0RF nausea and vomiting cyclobenzaprine Discontinued Reason: Patient no longer taking 10 mg PO TID PRN 20 tabs 0RF muscle spasm cyclobenzaprine Discontinued Reason: Patient no longer taking 5 mg PO BEDTIME PRN 7 tabs 0RF muscle spasm naproxen Discontinued Reason: Patient no longer taking 500 mg PO Q8-12H PRN 14 tabs 0RF pain (scale score 4-6) naproxen Discontinued Reason: Patient no longer taking 500 mg PO Q8H PRN 20 tabs 0RF pain (scale score 4-6) Coding Level of Care Code New Pt Level 3 (98563) Diagnoses Trigger finger, right middle finger M65.331 CPT Codes Tendon Injection - Tendon Injection 1: [id number]-[id number] Tendon Sheath Injection ([id number])
== END 2024-09-05 10:00 | disposition home or self-care (01) ==
PROVIDERS: PCP Internal Medicine
DX: M65.331 Trigger finger, right middle finger (principal)
CPT/HCPCS: 20550; 99204

== ENCOUNTER → 2024-09-05 09:15 | Outpatient (BNVA) | payer MEDICAID, SELFPAY | PROVIDERS: PCP Internal Medicine | DX: M65.331 Trigger finger, right middle finger (principal) | CPT/HCPCS: 20550; 99212; J1100; J2003 ==

== ENCOUNTER 2024-10-24 12:30 | Outpatient (AMB) | payer MEDICAID, SELFPAY ==
--- NOTE | 2024-10-24 12:53 | MHC.OFFVIS ---
Intake Visit Reasons: OV- RT MF trig finger, discuss options Intake Note: Maranda is a 49 year old, right hand dominant female who presents today for a follow up visit of her right middle trigger finger. At her last visit on 09/05/2024 patient received an injection, however this provided no relief. She would like to discuss surgical treatment today. Allergies No Known Allergies Allergy (Verified 10/24/24 12:57) HPI HPI OV- RT MF trig finger, discuss options: Details: Maranda is a 49 year old, right hand dominant female who presents today for a follow up visit of her right middle trigger finger. At her last visit on 09/05/2024 patient received an injection, however this provided no relief. She would like to discuss surgical treatment today. [facility] Social History Alcohol intake: unknown Patient Tobacco Use Status: Tobacco use Unknown Review of Systems Const All systems reviewed & are unremarkable except as noted in HPI and below Physical Exam Extrem Other: Patient is alert, oriented, and in no acute distress. Neuro: Normal sensation of the tips of all digits of the right hand at this time Vascular: Cap refill brisk Pain: Patient reports tenderness to palpation of the A1 malinda of the right middle finger Patient also reports pain with locking and catching of the right middle finger ROM: There is visible and palpable locking and catching of the right middle finger No other locking or catching noted Skin: No lacerations or abrasions. General: No ecchymosis, erythema, or evidence of infection. Psych: Appears grossly normal Affect normal Attitude cooperative Assessment & Plan Assessment & Plan (1) Trigger finger, right middle finger: Code(s): M65.331 - Trigger finger, right middle finger Category: Medical Plan 1. Trigger finger, right middle finger Injection ineffective I educated the patient about the condition. I discussed both operative and nonoperative treatment options. The patient would like to proceed with surgery. The risks and benefits of operative treatment were discussed with the patient and the patient wishes to proceed with surgery. These risks include, but are not limited to, risk of damage to blood vessels, nerves, tendons, infection, recurrence, incomplete relief of preoperative symptoms, persistent pain, possible need for further surgery, and the risks associated with regional blocks and/or anesthesia. Plan is to take the patient to the operating room at some point in the next few weeks for the following procedures: 1. Right middle finger trigger release under local All of the preoperative paperwork including the consent was discussed today. All of the patient's questions were answered in the clinic today. The patient understands that they will be in contact with our electronic die maker to discuss scheduling their procedure. Patient denies diabetes, blood thinners, asthma, heart issues, lung issues, kidney issues, or current smoking. Coding Level of Care Code Est Pt Level 4 (01011) Diagnoses Trigger finger, right middle finger M65.331
== END 2024-10-24 13:20 | disposition home or self-care (01) ==
PROVIDERS: PCP Internal Medicine
DX: M65.331 Trigger finger, right middle finger (principal)
CPT/HCPCS: 99214

== ENCOUNTER → 2024-10-24 12:30 | Outpatient (BNVA) | payer MEDICAID, SELFPAY | PROVIDERS: PCP Internal Medicine | DX: M65.331 Trigger finger, right middle finger (principal) | CPT/HCPCS: 99212 ==

== ENCOUNTER 2025-01-01 09:13 | Day surgery (SDC) | payer MEDICAID, SELFPAY ==
[2025-01-01 09:43] VITALS: BMI 31.6
[2025-01-01 09:44] VITALS: BP 116/74; PULSE 62; RESP 16; TEMP 37; O2SAT 99
--- NOTE | 2025-01-01 10:30 | P.OP_ITS ---
Operative Note Operative Note Date of Service: 01/01/25 Narrative: Operative Note Preop diagnosis: 1. Right middle finger Trigger finger Postop diagnosis: 1. Right middle finger Trigger finger Procedure: 1. Right middle finger A1 malinda release Surgeon: Eliana Rodriguez MD Multiple Drum Sander: None Anesthesia: local block using 1% lidocaine with epinephrine Findings: No locking or catching after A1 malinda release EBL: Less than 5 mL Tourniquet time: None Specimens: None Complications: None Disposition: Brought to recovery room in stable condition Plan: Follow-up for 10-14 days for wound check and suture removal Indications: The patient is 49 years old, with a right middle finger trigger finger that has been unresponsive to nonoperative management. The risks and benefits of operative treatment including but not limited to risk of damage to blood vessels, nerves, tendons, infection, persistent pain, persistent symptoms, recurrence or possible need for additional surgery were discussed with the patient and the patient wishes to proceed with surgery. Procedure: Once consent was obtained a local block was performed in the preop area using a combination of 1% lidocaine with epinephrine. The patient was then brought back to the operating suite and placed on the operative table in supine position. The right upper extremity was prepped and draped in a standard surgical fashion. Once assured that we had a good block, a 1.5 cm oblique incision was made centered over the A1 malinda of the right middle finger . The incision was made through the skin to the subcutaneous tissues using a #15 blade. Careful dissection was made down to the level of the A1 malinda using tenotomy scissors, with care being taken to protect the nearby neurovascular structures. A longitudinal incision was made in the A1 malinda 1st using a #15 blade, then using tenotomy scissors under direct visualization. The A1 malinda was noted to be thickened. Following our A1 malinda release, we no longer saw any locking or catching of the digit with flexion and extension. Once satisfied with our A1 malinda release the wound was copiously irrigated with normal saline and hemostasis was obtained with a brief period of local pressure. The skin edges were reapproximated with some 5.0 nylon suture material and a sterile dressing was applied. The patient appears to have tolerated the procedure well and with no complications. All digits were well vascularized at the conclusion of the case.
--- NOTE | 2025-01-01 10:30 | MHC.SHP ---
Pre-Procedural Eval Section A - 24 Hr Update-Section A only Date of Service: 01/01/25 The patient is an INPATIENT: No Changes since office visit: No Cold of Flu in the past 2 weeks, No New Medical Problems, No Changes in Medication and No Patient answered all questions The patient has been examined within 24 hours of the surgical procedure. The History & Physical has been completed within 30 days and I have reviewed it.: Yes Section B - Complete if H&P > 30 days Chief Complaint: Trigger finger, right middle finger Allergies: Allergies Allergy/AdvReac Type Severity Reaction Status Date / Time No Known Allergies Allergy Verified 10/24/24 12:57 Plan Diagnosis/Plan: Unchanged I have reviewed the history and physical and performed a pertinent physical examination on my patient. No changes have occurred unless specified. Time Spent With Patient Time: Total time managing care of this patient today ____ minutes.
[2025-01-01 11:31] VITALS: BP 124/79; PULSE 59; RESP 16; O2SAT 98
== END 2025-01-01 11:32 | disposition home or self-care (01) ==
PROVIDERS: Visit Provider Orthopaedic Surgery
PROC: (CPT 26055; principal; 2025-01-01 10:50)
DX: M65.30 Trigger finger, unspecified finger (principal)
CPT/HCPCS: 26055; J0171; J2003

== ENCOUNTER → 2025-01-01 09:13 | Outpatient (BNV) | payer MEDICAID, SELFPAY | PROVIDERS: Visit Provider Orthopaedic Surgery | DX: M65.331 Trigger finger, right middle finger (principal) | CPT/HCPCS: 26055 ==

== ENCOUNTER 2025-01-16 11:44 | Outpatient (AMB) | payer MEDICAID, SELFPAY ==
--- NOTE | 2025-01-16 11:46 | A.OFFVIS_ITS ---
Vital Signs 01/16/25 11:54 Height 5 ft 5 in Weight 190 lb BMI 31.6 Handedness Right Intake Visit Reasons: PO RT MF trigger 01/01/25 AR Intake Note: Maranda is a 49 year old right hand dominant female who presents today for a post operative visit s/p right middle finger A1 malinda release DOS: 01/01/[address] Eliana Rodriguez. Patient reports pain at the base of her right middle finger on the volar aspect. Denies drainage from incision. Site appears erythematic Sutures removed and steri strips applied. Watch Leader Required: Yes Watch Leader Language: Magento Developer Name: [id number] Allergies No Known Allergies Allergy (Verified 01/16/25 11:53) HPI HPI PO RT MF trigger 01/01/25 AR: Details: Maranda is a 49 year old right hand dominant female who presents today for a post operative visit s/p right middle finger A1 malinda release DOS: 01/01/[address] Eliana Rodriguez. Patient reports pain at the base of her right middle finger on the volar aspect. Denies drainage from incision. Site appears erythematic Sutures removed and steri strips applied. [facility] Medical History (Updated 01/16/25 @ 11:54 by CHANDLER Isidro) Trigger finger, right middle finger Social History Alcohol intake: unknown Patient Tobacco Use Status: Tobacco use Unknown Review of Systems Const All systems reviewed & are unremarkable except as noted in HPI and below Physical Exam Vital Signs: BMI result Body Mass Index 31.6 Extrem Other: Patient is alert, oriented, and in no acute distress. Neuro: Normal sensation of the tips of all digits of the right hand at this time Vascular: Cap refill brisk Pain: Significant tenderness to palpation at the proximal aspect of the incision site over the A1 malinda of the right middle finger ROM: Patient was able to make closed fist and extend all digits of the right hand fully and without difficulty No further locking or catching Skin: Well-approximated incision site noted of the A1 malinda of the right middle finger No significant erythema noted, however there is noted to be edema on the proximal aspect of the No lacerations or abrasions. Psych: Appears grossly normal Affect normal Attitude cooperative Assessment & Plan Assessment & Plan (1) Trigger finger, right middle finger: Code(s): M65.331 - Trigger finger, right middle finger Category: Medical Plan 1. Status post right middle finger trigger release DOS 01/01/2025 Patient appears to be recovering well postoperatively Patient is educated about the typical recovery course At this time, due to the recommendation of Dr. Rodriguez, patient was placed on a one-week course of Augmentin out of an abundance of caution due to the significant tenderness and swelling around the incision site Patient was amenable to this plan Follow-up in 1 week for wound check, sooner with any acute concerns Medications: New amoxicillin-pot clavulanate 875-125 mg 1 tab PO BID 7 days 14 tabs 0RF amoxicillin-pot clavulanate 875-125 mg 1 tab PO BID 14 tabs 0RF 7 days Coding Level of Care Code Global (98261) Diagnoses Trigger finger, right middle finger M65.331
[2025-01-16 11:54] VITALS: BMI 31.6
--- OUTSIDE RECORDS SUMMARY | 2025-01-16 14:10 | XMS_ITS | Clinical Summary ---
Author Organization [employer] Address [address] [facility] [address] [place] [address] Care Team Providers Care Executive Services Administrator Name Role Phone Ladi Andrade [facility] Primary Care Provider [phone] Allergies No known active allergies Medications terbinafine (LamISIL AT) 1 % creamIndication s:Intertrigo Apply topically 2 times daily. 42 g 1 3 Active Additional Information Patient not taking.Reported on 02/08/2024 hydrocortisone 2.5 % creamIndication s:Intertrigo Apply topically 2 times daily. Apply to affected areas twice daily to relieve itching 28 g 1 3 Active Additional Information Patient not taking.Reported on 02/08/2024 Lidoderm 5 % patch 3 Active naproxen (Naprosyn) 500 MG tablet TAKE 1 TABLET BY MOUTH TWICE DAILY FOR 10 DAYS NEEDED FOR PAIN 3 Active albuterol 108 (90 Base) MCG/ACT inhalerIndicati ons:Shortness of breath Inhale 2 puffs every 6 (six) hours if needed for wheezing. 18 g 11 4 Active Additional Information Patient not taking.Reported on 02/08/2024 Spacer/Aero-Hol ding Chambers deviceIndicatio ns:Shortness of breath For use with albuterol 1 each 4 Active Additional Information Patient not taking.Reported on 02/08/2024 Active Problems Problem Noted Date Diagnosed Date Mixed hyperlipidemia 01/01/2024 Healthcare maintenance 12/29/2023 Overview (12/29/2023): Mammo: Pap: C-scope: BMD: HCV Screen: HIV Screen: Immunizations: Screening Labs: Low back pain 12/26/2022 Mixed anxiety and depressive disorder 09/21/2020 Chronic rhinitis 09/21/2020 Obesity (BMI 35.0-39.9 without comorbidity) 05/20 Resolved Problems Problem Noted Date Diagnosed Date Resolved Date Shortness of breath 01/01/2024 11/09/19 25 Encounters Date Type Department Care Team Description 12/29/2024 Population Health Risk Score Community Care [facility] (C3) Department [address] [place] [address] [phone] Provider, Population Health Generic 11/15/2024 1:00 PM EST Office Visit [facility] [address] [place] [address] Antonietta Barnett, OD Abrasion of right cornea, subsequent encounter (Primary Dx); Traumatic iritis 11/15/2024 Travel 11/14/2024 Travel 11/10/[address] [facility] [address] [place] [address] RaymondLadi bryan FNP No Show 11/09/2024 3:00 PM EST Office Visit [facility] [address] [place] [address] Antonietta Barnett, OD Abrasion of right cornea, initial encounter (Primary Dx); Traumatic iritis 11/09/2024 2:40 PM EST Office Visit [facility] [address] [place], [place] [phone] Teresa Anand DO Acute right eye pain (Primary Dx) 11/09/2024 Travel 10/25/[address] [facility] [address] [place] [address] HollywoodLadi TRAINING PROFESSIONAL Nurse Triage from Last 3 Months Family History Medical History Relation Name Comments Arthritis Mother Depression Mother Diabetes Mother Hypertension Mother Cancer Neg Hx no family histo ry of any type of cancer Relation Name Status Comments Mother Social History Tobacco Use Types Packs/Day Years Used Date Smoking Tobacco: Never Smokeless Tobacco: Never Tobacco Cessation:Counseling Given: Not Answered Housing Stability Answer Date Recorded What is your housing situation today? I have rafa brenner 12/22/[address] you li ve. Do you have problems with any of the following? None of the above 12/22/2023 Food Insecurity Answer Date Recorded Within the past 12 months, y ou worried that your food would run out before you got money to buy more: Never True 12/22/2023 Within the past 12 months,th e food you bought just didn't last and you didn't have enough money to get more: Never True 03/2024 Transportation Answer Date Recorded In the past 12 months, has l ack of transportation kept you from medical appts, meetings, work or from getting things needed for daily living? No 12/22/2023 Utilities Answer Date Recorded In the past 12 months, has t he electric, gas, oil or water company threatened to shut off services in your home? No 12/22/2023 Comments Unknown Sex and Gender Information Value Date Recorded Sex Assigned at Female 08/17/2022 10:29 AM EDT Legal Sex Female 10:29 AM EDT Gender Identity Female 08/17/2022 10:29 AM EDT Sexual Orientation Straight 08/17/2022 10 :29 AM EDT Last Filed Vital Signs Vital Sign Reading Time Taken Comments Blood Pressure 124/77 11/09/2024 1:48 PM EST Pulse 86 11/09/2024 1:48 PM EST Temperature 36.3 ??C (97.4 ??F) 11/09/2024 1:48 PM ES T Respiratory Rate 18 11/09/2024 1:48 PM EST Oxygen Saturation 98% 11/09/2024 1:48 PM EST Inhaled Oxygen Concentration - - Weight 109 kg (240 lb 9.6 oz) 11/09/2024 1:48 PM EST Height 157.5 cm (5' 2 ) 12/29/2023 11:27 AM EDT Body Mass Index 44.01 12/29/2023 11:27 AM EDT Plan of Treatment Health Maintenance Due Date Last Done Comments CT Colonography 1976 Colonoscopy 1976 Colorectal Cancer Screening 1976 Dental Prophylaxis 1976 Depression Screening 1976 FIT DNA/Cologuard 1976 FIT 1976 FOBT 1976 HIV Screening 1976 Sigmoidoscopy 1976 Alcohol/Substance Use Screening 1988 Family Planning (PISQ) 1991 Hepatitis C Screening 1994 DTaP/Tdap/Td Vaccines (1 - Tdap) 1995 Hepatitis B Vaccines (1 of 3 - 19+ 3-dose series) 1995 Pap Smear 1997 Mammogram 01/21/2020 01/20/2018 Cervical Cancer Screening 07/21/2022 HPV/Cotest 07/21/2022 07/21/2017 COVID-19 Vaccine (3 - 2023-2 5 season) 2024 06/17/2021, 05/28/2021 Influenza Vaccine (#1) 2024 Dental Oral Exam 08/10/2024 02/08/2024 SDOH Screening 12/21/2024 12/22/2023 Dental X-Ray: Bitewings 02/08/2025 02/08/20, 01/06/2024 Tobacco Screening 12/06/2025 12/06/2024 Zoster Vaccines (1 of 2) 2026 Dental X-Ray: Full Mouth 02/08/2027 02/08/2024 Lipid Panel 12/29/2028 12/30/2023 RSV Patients and Patients Aged 60 years or older (1 - 1-dose 75+ series) 2051 HIB Vaccines Aged Out No longer eligi ble based on patient's age to complete this topic HPV Vaccines Aged Out No longer eligi ble based on patient's age to complete this topic Hepatitis A Vaccines Aged Out No long er eligible based on patient's age to complete this topic IPV Vaccines Aged Out No longer eligi ble based on patient's age to complete this topic Meningococcal Vaccine Aged Out No jyotsna wilfredo eligible based on patient's age to complete this topic Pneumococcal Vaccine: Pediatrics (0 to 5 Years) and At-Risk Patients (6 to 49) Years) Aged Out No longer eligible b ased on patient's age to complete this topic RSV under 20 months Aged Out No longe r eligible based on patient's age to complete this topic Rotavirus Vaccines Aged Out No longer eligible based on patient's age to complete this topic Procedures Procedure Name Priority Date/Time Associated Diagnosis Comments INTRAORAL - COMPLETE SERIES OF RADIOGRAPHIC IMAGES Routine 02/08/2024 1:30 PM EDT COMPREHENSIVE ORAL EVALUATION - NEW OR ESTABLISHED PATIENT Routine 02/08/2024 1:30 PM EDT LIPID PANEL, STANDARD Routine 12/30/2023 8:32 AM EDT Class 3 severe obesity due to excess calories with body mass index (BMI) of 40.0 to 44.9 in adult, unspecified whether serious comorbidity present (CMS/HCC) BI MAMMOGRAM SCREENING BILATERAL Routine 01/20/2018 6:16 PM EDT [facility] HISTORICAL HPV MRNA E6/E7 Routine 07/21/2017 11:35 AM EDT from Last 3 Months or Most Recently Relevant to Health Maintenance Results * (ABNORMAL) Lipid Panel, Standard (12/30/2023 8:32 AM EDT) Triglycerides 67 <150 mg/dL [facility] Comment:Desirable Triglyceri de: less than 150 mg/dLBorderline High Triglyceride 150-199 mg/dLHigh Triglyceride: 200-499 mg/dLVery High Triglyceride: greater than or equal to 5OO mg/dL Cholesterol 171 <200 mg/dL [facility] Comment:Desirable Cholestero l: less than 200 mg/dLBorderline High Cholesterol: 200-239 mg/dLHigh Cholesterol: greater than 239 mg/dL LDL Cholesterol Calculated 107(H) <100 mg/dL [facility] Comment:Desirable LDL: less than 100 mg/dLNear Optimal/Above Optimal LDL: 110- 129 mg/dLBorderline High LDL: 130-159 mg/dLHigh LDL: 160-189 mg/dLVery High LDL: greater than or equal to 190 mg/dL HDL Cholesterol 51 >40 mg/dL [facility] Comment:Desirable HDL: great er than 40 mg/dL Note: This HDL assay may give artificially low results in patients with liver disease. Blood Venous blood specimen / Unknown 12/30/2023 8:32 AM EDT 12/30/2023 11:30 AM EDT [facility] TRAINING PROFESSIONAL LAB BLOOD ORDERABLES Final Re sult [facility] [address] [place] [address] [phone] * DIGITAL BILATERAL SCREEN 1 (01/20/2018 6:16 PM EDT) Anatomical Region Laterality Modality Breast Bilateral Mammography 01/20/2018 6:16 PM EDT Narrative 01/20/2018 6:19 PM EDT Refer to the Notes tab for result details [facility] Procedure: DIGITAL BILATERAL SCREEN 1 Procedure Note ProviderDina MD - 01/09/2023 Refer to the Notes tab for result details [facility] Procedure: DIGITAL BILATERAL SCREEN 1 us Emily Matos MD IMG BI PROCEDURES Final Resul t * HPV mRNA E6/E7 (07/21/2017 11:35 AM EDT) HPV mRNA E6/E7 Not Detected NOT DETECTED [facility] Comment: This test was performed using the APTIMA(R) HPV Assay ([employer] This assay detects E6/E7 viral messenger RNA (mRNA) from 14 high-risk HPV types (16,18,31,33,35,39,45,51, 52,56,58,59,66,68). For additional information please refer to: http://education.Infotop/faq/KXE745q4 (This link is being provided for informational/ educational purposes only.) Test Performed by [employer] technologyDonna, [employer] [email or web address]) [facility], [address] [place] [address] Fernando Leslie M.D., Ph.D., Director of Laboratories , [facility] [id number] Please note: ??Effective 06/29/2016, HPV testing will be performed using [employer]'s APTIMA test which targets mRNA. Detecting mRNA instead of DNA, as in older methods, offers significant improvements in specificity. 07/21/2017 11:3 5 AM EDT us Brooklynn Del Toro CNM HISTORICAL/NON ORDERABLE LABS Final Result [facility] [address] from Last 3 Months or Most Recently Relevant to Health Maintenance Insurance [facility] C3 DENTAL-[facility] MEDICAID STAND ADULT Care Teams Executive Services Administrator Relationship Specialty Start Date End Date Ladi Andrade FNP [address] [place] [address] PCP - General Family Medicine 04/07/22
--- OUTSIDE RECORDS SUMMARY | 2025-01-16 14:10 | XMS_ITS | Encounter Summary ---
Author Organization [employer] Address [address] [facility] [address] [place] [address] Care Team Providers Care Pumper Brewery Name Role Phone [place], [facility] Primary Care Provider Reason for Visit * Reason Onset Date Comments Nurse Triage 10/25/2024 Encounter Details Date Type Department Care Team ([facility] st Contact Info) Description 10/25/2024 Telephone [facility] [address] [place], [place] [phone] [facility] [address] [place], [place] [phone] Nurse Triage Social History Tobacco Use Types Packs/Day Years Used Date Smoking Tobacco: Never Smokeless Tobacco: Never Housing Stability Answer Date Recorded What is [...] Orientation Straight 08/17/2022 10 :29 AM EDT documented as of this encounter Miscellaneous Notes * Telephone Encounter - Vickie Gill RN - 10/25/2024 1:53 PM EST Triage call with [facility] glove printer [place] [id number] Pt reports no period for 2 years and then Pt began to have spotting yesterday with bleeding which began last night. Pt reports using 2 pads so far. 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 Denied abdominal cramping ordiscomfort at time of call. Pt reports the bleeding is slowing down today. Pt is advised to keep a written record of daily bleeding, amount, use of how many pads and pain. Bring this information to ASK apt with PCP 11/10/24 @ 1100am. Pt asked to clarify what keeping a record meant. Bailing Machine Operator explained that Pt can write down each day how much bleeding, how many pads used and if anything changes. When written down and brought to apt this will help PCP to see what is going on daily. Pt expressed understanding and will do this. No other questions offered. Pt agreed with disposition. Insurance is verified as active prior to booking. Protocol Used: Vaginal Bleeding - Abnormal (Adult) Protocol-Based Disposition: See in Office or Video Visit within 2 Weeks Positive Triage Question: * Age > 39 years with irregular or excessive bleeding * All higher-acuity triage questions were negative Care Advice Discussed: * Reasons To Call Back - Severe abdomen pain or lightheadedness occurs - test is positive - Bleeding worsens - Bleeding or spotting lasts over 7 days - You become worse * Telephone Encounter - Terry Virk - 10/25/2024 12:31 PM EST TC from pt reporting excessive vaginal bleeding . States she has not had a menstrual cycle in over 2 years and is concerned . Pt reports yesterday was spotting and woke up this AM to full bleeding . Hungarian speaking documented in this encounter Plan of Treatment Not on file documented as of this encounter Visit Diagnoses Not on filedocumented in this encounter Care Teams Pumper Brewery Relationship Specialty Start Date End Date Ladi Andrade FNP [address] [place] [phone] PCP - General Family Medicine 04/07/22 documented as of this encounter
== END 2025-01-16 12:12 | disposition home or self-care (01) ==
LOC: HO.HOS 11:45
PROVIDERS: PCP Internal Medicine
DX: M65.331 Trigger finger, right middle finger (principal)
CPT/HCPCS: 99024

== ENCOUNTER → 2025-01-16 11:44 | Outpatient (BNVA) | payer MEDICAID, SELFPAY | PROVIDERS: PCP Internal Medicine | DX: Z47.89 Encounter for other orthopedic aftercare (principal); Z98.890 Other specified postprocedural states | CPT/HCPCS: 99212 ==

== ENCOUNTER 2025-01-23 10:47 | Outpatient (AMB) | payer MEDICAID, SELFPAY ==
--- NOTE | 2025-01-23 11:04 | A.OFFVIS_ITS ---
Vital Signs 01/23/25 11:07 Height 5 ft 5 in Weight 190 lb BMI 31.6 Intake Visit Reasons: PO RT MF trigger 01/01/25 AR Intake Note: Maranda is a 49 year old right hand dominant female who presents today for a post operative visit s/p right middle finger A1 malinda release DOS: 01/01/[address] Eliana Rodriguez. At her last visit on 01/16/25 patient was placed on a one week course of Augmentin. Patient reports she is doing well, states incision area looks white, area looks dry. Peoplesoft Financial Developer Required: Yes Peoplesoft Financial Developer Services: Peoplesoft Financial Developer Present Peoplesoft Financial Developer Name: Woody ID# [id number] Allergies No Known Allergies Allergy (Verified 01/23/25 11:06) HPI HPI PO RT MF trigger 01/01/25 AR: Details: Maranda is a 49 year old right hand dominant female who presents today for a post operative visit s/p right middle finger A1 malinda release DOS: 01/01/[address] Eliana Rodriguez. At her last visit on 01/16/25 patient was placed on a one week course of Augmentin. Patient reports she is doing well, states incision area looks white, area looks dry. [facility] Medical History (Updated 01/16/25 @ 11:54 by CHANDLER Isidro) Trigger finger, right middle finger Social History Alcohol intake: unknown Patient Tobacco Use Status: Tobacco use Unknown Review of Systems Const All systems reviewed & are unremarkable except as noted in HPI and below Physical Exam Vital Signs: BMI result Body Mass Index 31.6 Extrem Other: Patient is alert, oriented, and in no acute distress. Neuro: Normal sensation of the tips of all digits of the right hand at this time Vascular: Cap refill brisk Pain: No further tenderness to palpation at the proximal aspect of the incision site over the A1 malinda of the right middle finger ROM: Patient was able to make closed fist and extend all digits of the right hand fully and without difficulty No further locking or catching Skin: Well-approximated incision site noted of the A1 malinda of the right middle finger No erythema, edema resolved No lacerations or abrasions. Psych: Appears grossly normal Affect normal Attitude cooperative Assessment & Plan Assessment & Plan (1) Trigger finger, right middle finger: Code(s): M65.331 - Trigger finger, right middle finger Category: Medical Plan 1. Status post right middle finger trigger release DOS 01/01/2025 Patient appears to be recovering well postoperatively Patient is educated about the typical recovery course No further antibiotic therapy required No acute follow-up required for trigger release, as patient appears to be recovering very well Follow-up as needed with any acute concerns Coding Level of Care Code Global (54281) Diagnoses Trigger finger, right middle finger M65.331
[2025-01-23 11:07] VITALS: BMI 31.6
== END 2025-01-23 11:27 | disposition home or self-care (01) ==
LOC: HO.HOS 10:47
PROVIDERS: PCP Internal Medicine
DX: M65.331 Trigger finger, right middle finger (principal)
CPT/HCPCS: 99024

== ENCOUNTER → 2025-01-23 10:47 | Outpatient (BNVA) | payer MEDICAID, SELFPAY | PROVIDERS: PCP Internal Medicine | DX: Z09 Encounter for follow-up examination after completed treatment for conditions other than malignant neoplasm (principal); Z87.39 Personal history of other diseases of the musculoskeletal system and connective tissue; Z98.890 Other specified postprocedural states | CPT/HCPCS: 99212 ==